=== PATIENT | male | born 1965 | race Caucasian/White ===

== ENCOUNTER 2018-08-14 14:46 | Emergency (ER) | payer BC, SELFPAY ==
[2018-08-14 14:55] VITALS: BP 152/102; PULSE 134; RESP 16; TEMP 36.6; O2SAT 96
--- NOTE | 2018-08-14 15:22 | ED.GENADUL_ITS ---
Discharge Plan Disposition Patient Disposition: AGAINST MEDICAL ADVICE Condition: Fair Discharge Details Chief Complaint: Palpitatns Clinical Impression: Atrial fibrillation Primary Care Provider: Nadya Day ED Provider: Leonor Johnson Home Meds and New Rx's Prescriptions: New diltiazem HCl 120 mg capsule,extended release 24hr 120 mg PO DAILY Qty: 30 RF: 0 Eliquis 5 mg tablet 5 mg PO BID Qty: 60 RF: 0 Discharge Instructions Instructions: Atrial Fibrillation (ED) Additional Instructions: You have elected to leave the emergency department AGAINST MEDICAL ADVICE. The risks of doing so are and permanent disability as we discussed. Please return immediately to the emergency department if you change your mind, if you develop new or worsening symptoms, or if you become otherwise concerned. It is extremely important that you make an appointment to be seen by your primary care doctor in follow-up for this visit within the next 1 to 2 days, and also that you make an appointment to be seen by a imaging specialist as soon as possible in follow-up. Referrals: Nadya Day [Primary Care Provider] - Prisca Lopez MD [ CONSULTING PHYSICIAN] - Discharge Data Discharge Date/Time-TO BE ENTERED AT DEPARTURE: 08/14/18 18:10 Medical Decision Making Byron Stephens is a 2-year-old man with out reported history of medical problems, taking no medications who presented to the emergency department with sensation of racing heart and mild lightheadedness since waking this morning. On exam patient found to be tachycardic with an irregular rhythm, exam is otherwise benign. Concern for new onset atrial fibrillation. Exam/history is not consistent with acute aortic pathology, sepsis. Doubt PE. Plan for EKG, chest x-ray, screening labs, telemetry, IV diltiazem, admission for new onset A. fib. Patient does state repeatedly that he does not wish to be admitted to the hospital. Patient heart rate improved to 100-110 after diltiazem bolus, plan for diltiazem drip and admission. I again discussed with the patient my concerns and reasoning for admission. Patient states to me that he does not want to be admitted under any circumstance at this time and wants to go home. I discussed the risks of leaving AGAINST MEDICAL ADVICE including or permanent disability, and he continues to refuse admission despite verbalizes seeing understanding the risks. Patient has decision-making capacity. plan to discuss patient with cardiology for outpatient management. I discussed Pt presentation, results with Dr. Lopez of cardiology, who recommends patient be admitted, however if patient refuses admission AGAINST MEDICAL ADVICE, he recommends diltiazem 24-hour extended release 120 mg to be given here in the hospital after stopping diltiazem drip, with subsequent 2-hour observation in the emergency department to watch for hypotension. He also recommends patient be started on Eliquis 5 mg twice daily, and states that his office will contact patient tomorrow to schedule outpatient follow-up with cardiology. I discussed the plan with the patient. He is amenable to starting Eliquis and p.o. diltiazem however he does refuse a 2-hour observation period. I again discussed the risks of leaving AGAINST MEDICAL ADVICE in this scenario, including life- threatening hypotension in addition to prior risks discussed previously, he again verbalizes understanding of the risks and refuses recommended plan 2 hour observation. Lengthy discussion with patient regarding return to emergency department precautions, home care, that it is likely his atrial fibrillation is due to excessive alcohol consumption, and that he should either stop drinking altogether or limit alcohol intake to 1 drink per day, and importance of outpatient follow-up with cardiology and his PCP soon as possible, and also that he may return to the emergency department anytime if he changes his mind. Patient verbalized understanding. Patient was discharged AGAINST MEDICAL ADVICE with clear plan for outpatient follow-up. All questions were answered. Medical Records Medical records reviewed: Yes I reviewed the patient's medical records. Imaging Data Radiologic Study: Attestation: I personally reviewed and interpreted this imaging study as follows: Radiologist's impression: PORTABLE CHEST: Comparison is made with April,. The cardiac and mediastinal contours have a normal appearance. The lungs are well inflated and clear. No infiltrate, effusion or pulmonary edema is seen. There is no evidence of pneumothorax. IMPRESSION: Negative chest x-ray. Lab Data Lab results reviewed: Yes I reviewed the patient's lab results. Laboratory Tests Range/Units 08/14/18 08/14/18 08/14/18 15:25 15:25 15:25 WBC (4.4-10.8) k/cumm 8.21 RBC (4.50-6.00) m/cumm 4.90 Hgb (13.5-17.5) g/dL 15.8 Hct (40.0-50.0) % 46.6 MCV (80-95) fL 95.1 H MCH (27.0-33.0) pg 32.2 MCHC (32.0-36.0) g/dL 33.9 RDW (11.8-14.1) % 13.1 Plt Count (130-400) x1000/uL 260 MPV (8.0-11.0) fL 10.3 Immature Gran % 0.4 Neutrophils % 67.6 Lymphocytes % 19.0 Monocytes % 9.6 Eosinophils % 2.7 Basophils % 0.7 Absolute Neutrophils (1.2-6.7) k/cumm 5.55 Absolute Lymphocytes (1.2-3.4) k/cumm 1.56 Absolute Monocytes (0.11-0.7) k/cumm 0.79 H Absolute Eosinophils (0.0-0.7) k/cumm 0.22 Absolute Basophils (0.0-0.2) k/cumm 0.06 D-Dimer (<500) ng/mlFEU 284 Sodium (136-145) mmol/L 140 Potassium (3.5-5.1) mmol/L 4.0 Chloride (98-107) mmol/L 104 Carbon Dioxide (21.0-32.0) mmol/L 25.1 Anion Gap (3-11) mmol/L 10.9 BUN (7-18) mg/dL 16 Creatinine (0.70-1.30) mg/dL 0.88 Estimated GFR/1.73 m2 (mL/min/1.73m2) >= 60.00 Glucose (70-100) mg/dL 137 H Calcium (8.5-10.1) mg/dL 8.8 Total Bilirubin (0.2-1.0) mg/dL 0.3 AST (15-37) U/L 22 ALT (12-78) U/L 44 Alkaline Phosphatase (46-116) U/L 113 Troponin I (0.00-0.06) ng/mL < 0.02 Total Protein (6.4-8.2) g/dL 7.7 Albumin (3.4-5.0) g/dL 3.8 TSH (0.358-3.74) uIU/mL Range/Units 08/14/18 08/14/18 18:08 19:30 WBC (4.4-10.8) k/cumm RBC (4.50-6.00) m/cumm Hgb (13.5-17.5) g/dL Hct (40.0-50.0) % MCV (80-95) fL MCH (27.0-33.0) pg MCHC (32.0-36.0) g/dL RDW (11.8-14.1) % Plt Count (130-400) x1000/uL MPV (8.0-11.0) fL Immature Gran % Neutrophils % Lymphocytes % Monocytes % Eosinophils % Basophils % Absolute Neutrophils (1.2-6.7) k/cumm Absolute Lymphocytes (1.2-3.4) k/cumm Absolute Monocytes (0.11-0.7) k/cumm Absolute Eosinophils (0.0-0.7) k/cumm Absolute Basophils (0.0-0.2) k/cumm D-Dimer (<500) ng/mlFEU Sodium (136-145) mmol/L Potassium (3.5-5.1) mmol/L Chloride (98-107) mmol/L Carbon Dioxide (21.0-32.0) mmol/L Anion Gap (3-11) mmol/L BUN (7-18) mg/dL Creatinine (0.70-1.30) mg/dL Estimated GFR/1.73 m2 (mL/min/1.73m2) Glucose (70-100) mg/dL Calcium (8.5-10.1) mg/dL Total Bilirubin (0.2-1.0) mg/dL AST (15-37) U/L ALT (12-78) U/L Alkaline Phosphatase (46-116) U/L Troponin I (0.00-0.06) ng/mL Cancelled Total Protein (6.4-8.2) g/dL Albumin (3.4-5.0) g/dL TSH (0.358-3.74) uIU/mL 1.56 ECG Data Attestation: I personally reviewed and interpreted this ECG (s) as follows: Interpretation: EKG shows afib 129, far right axis, I and aVL TW inversion, no prior, non-diagonostic EKG HPI General Mode of arrival: ambulatory . Date/Time Provider Initiated Documentation: 08/14/18 15:01 . Limitations to Documentation: no limitations . Information obtained by: patient, RN notes reviewed and old records reviewed . HPI Narrative: Byron Stephens 52-year-old man without reported history of major medical problems, taking no medications now presenting to the emergency department with palpitations. Patient has an at home pulse oximeter, which he used to monitor his heart rate as between 110 and 130 while at rest. Patient reports that he woke up this morning at 6:30 AM with a sensation that his heart was racing. He went to work today at [employer], and reports that he continued to have a sensation in his heart was racing and felt somewhat lightheaded while standing. Patient reports that he was encouraged to go to the emergency department by his coworkers. Patient reports that he has been feeling somewhat more tired than usual over the past few days, but otherwise has been in his usual state of health. He does not recall having a sensation of his heart racing or palpitations in the past. Patient reports that for the past 4 to 5 weeks he has been drinking 4-5 beers a day, which is increased from a baseline of approximately 3 beers a day. Patient reports that his mother approximately 1 year ago, and he has been under increased stress with Mother's Day yesterday. Patient denies pain, shortness of breath, fever, cough, vomiting, diarrhea. No recent illness. No recent travel. Has been eating and drinking as usual. He is a current everyday smoker, no drug use. Related Data Home Medications Medication Instructions Recorded Confirmed Eliquis 5 mg PO BID #60 tab 08/14/18 08/15/18 diltiazem HCl 120 mg PO DAILY #30 cap 08/14/18 08/15/18 Previous Rx's Medication Instructions Recorded Eliquis 5 mg PO BID #60 tab 08/14/18 diltiazem HCl 120 mg PO DAILY #30 cap 08/14/18 Allergies Allergy/AdvReac Type Severity Reaction Status Date / Time No Known Allergies Allergy Unverified 08/15/18 11:59 General Stated Complaint: Palpitatns RAVI: 2 Review of Systems Review of Systems Constitutional: denies fevers Eyes: denies eye pain ENT: denies facial pain, dental pain, sore throat Cardiovascular: denies chest pain, edema, reports racing heart Respiratory: denies SOB, cough GI: denies abdominal pain, vomiting, diarrhea : denies flank pain MSK: denies back pain, neck pain, arthralgias, myalgias Skin: denies rash Neuro: denies headaches, numbness, weakness [facility] Social History Smoking/Tobacco Use Status: Current every day Tobacco Type: cigarettes Smoking packs per day: 1 Alcohol Intake: current Alcohol Intake frequency: 0-2 drinks per day Drug use: Never Do you feel safe at home: Yes Do you feel safe in your relationship?: Yes Exam Narrative Exam Narrative: Constitutional: well and [id number], pleasant, conversing normally HENT: head atraumatic/normocephalic/normal inspection, mucous membranes moist Eyes: conjunctiva normal, sclera normal, pupils 3mm b/l Neck: no stridor, normal ROM, trachea midline Chest: normal inspection Resp: normal work of breathing, LCTAB Cardio: Tachycardic rate between 120 and 135, irregular rhythm, no murmur appreciated GI: abdomen soft, non-tender, non-distended Back: normal inspection, no rash Skin: warm, dry, normal color, no rash Neuro: alert, not altered, grossly non-focal, normal tone Ext: no edema, no posterior calf tenderness, patient notes varicose veins left lower leg that are mildly tender which he reports as chronic and unchanged over the past 5 years Psych: normal mood, normal affect, normal behavior Course Vital Signs Temperature 36.6 C 08/14/18 14:55 Pulse 134 H 08/14/18 14:55 Respiratory Rate 16 08/14/18 14:55 Blood Pressure 152/102 H 08/14/18 14:55 Pulse Oximetry 96 08/14/18 14:55 Temperature 36.6 C 08/14/18 14:55 Temperature Source Skin 08/14/18 14:55 Pulse 134 H 08/14/18 14:55 Respiratory Rate 16 08/14/18 14:55 Blood Pressure 152/102 H 08/14/18 14:55 Blood Pressure Position Sitting 08/14/18 14:55 Pulse Oximetry 96 08/14/18 14:55 Oxygen Delivery Method Room Air 08/14/18 14:55 Oxygen Flow Rate 0 08/14/18 14:55 Pain Level 0 08/14/18 14:55
[2018-08-14 15:31] LABS: Abs Immature Grans 0.03 k/cumm (0.0-0.09); Absolute Basophil Count 0.06 k/cumm (0.0-0.2); Absolute Eosinophil Count 0.22 k/cumm (0.0-0.7); Absolute Lymphocyte Count 1.56 k/cumm (1.2-3.4); Absolute Monocyte Count 0.79 k/cumm (0.11-0.7); Absolute Neutrophil Count 5.55 k/cumm (1.2-6.7); Basophils % 0.7; Eosinophils % 2.7; HCT 46.6 % (40.0-50.0); HGB 15.8 g/dL (13.5-17.5); Immature Grans % 0.4; Mean Corp. HGB Concentration 33.9 g/dL (32.0-36.0); Mean Corpuscular Hemoglobin 32.2 pg (27.0-33.0); Mean Corpuscular Volume 95.1 fL (80-95); Mean Platelet Volume 10.3 fL (8.0-11.0); Monocytes % 9.6; Neutrophils % 67.6; Platelet Count 260 x1000/uL (130-400); RBC Distribution Width 13.1 % (11.8-14.1); White Blood Cell Count 8.21 k/cumm (4.4-10.8)
[2018-08-14 15:39] VITALS: BP 140/97; PULSE 130
[2018-08-14] MEDS: dilTIAZem 25 MG/5 ML VIAL 20 MG IVP (15:39)
[2018-08-14] MEDS: Normal Saline 250 ML IV (15:40)
[2018-08-14 15:46] LABS: ALT 44 U/L (12-78); AST 22 U/L (15-37); Albumin 3.8 g/dL (3.4-5.0); Alkaline Phosphatase 113 U/L (46-116); Anion Gap 10.9 mmol/L (3-11); BUN 16 mg/dL (7-18); Bilirubin, Total 0.3 mg/dL (0.2-1.0); CO2 25.1 mmol/L (21.0-32.0); CREATININE 0.88 mg/dL (0.70-1.30); Calcium 8.8 mg/dL (8.5-10.1); Chloride 104 mmol/L (98-107); Glucose 137 mg/dL (70-100); Sodium 140 mmol/L (136-145); Total Protein 7.7 g/dL (6.4-8.2)
[2018-08-14 15:51] LABS: Troponin I < 0.02 ng/mL (0.00-0.06)
[2018-08-14 16:04] LABS: D-Dimer 284 ng/mlFEU (<500)
[2018-08-14] MEDS: dilTIAZem 125 MG in Normal Saline 100 ML IV (16:45)
[2018-08-14 18:34] LABS: TSH (W/Ref FT4) 1.56 uIU/mL (0.358-3.74)
--- NOTE | 2018-08-16 08:24 | PDOC.ERCMPRO ---
Care Management Progress Note 08/15-Josie left AMA refusing admission. Presented to ED for palpitations. Josie called this CM requesting a cardiology f/u. States he called cardiology and was told he needed to have a referral. This CM faxed referral to cardiology based on Dr. Ryanne Johnson's note. Patient also requested a work note. Josie stated he could not get in to see his PCP until 08/25 and could not stay out of work that long. This CM called [facility] and spoke with GOLDEN Carter. Emma stated that the th was next available and she could not get him in any sooner. Called josie back and explained above. Recommended that he return to the emergency department for evaluation if he needed to. Josie is in agreement with all the above.
--- NOTE | 2018-08-16 08:27 | CMPROGNOTE_ITS ---
Care Management Progress Note 08/15-Josie left AMA refusing admission. Presented to ED for palpitations. Josie called this CM requesting a cardiology f/u. States he called cardiology and was told he needed to have a referral. This CM faxed referral to cardiology based on Dr. Ryanne Johnson's note. Patient also requested a work note. Josie stated he could not get in to see his PCP until 08/25 and could not stay out of work that long. This CM called [facility] and spoke with GOLDEN Carter. Emma stated that the th was next available and she could not get him in any sooner. Called josie back and explained above. Recommended that he return to the emergency department for evaluation if he needed to. Josie is in agreement with all the above.
== END 2018-08-14 18:10 | disposition left against medical advice (07) ==
PROVIDERS: Emergency Provider Student in an Organized Health Care Education/Training Program; PCP Nurse Practitioner Adult Health
DX: I48.91 Unspecified atrial fibrillation (principal); R42 Dizziness and giddiness; R00.0 Tachycardia, unspecified; Z53.29 Procedure and treatment not carried out because of patient's decision for other reasons
CPT/HCPCS: 36415; 80053; 93005; 96361; 96365; 96375; 99285; 71045; 84443; 84484; 85025; 85379; 93010

== ENCOUNTER 2018-08-15 11:48 | Emergency (ER) | payer BC, SELFPAY ==
[2018-08-15 11:55] VITALS: BP 149/93; PULSE 77; RESP 16; TEMP 36.4; O2SAT 99
--- NOTE | 2018-08-15 12:35 | W.ED.GENAD ---
Discharge Plan Disposition Patient Disposition: HOME Condition: Good Discharge Details Chief Complaint: GenMedical Clinical Impression: Need for reassessment, Atrial fibrillation Primary Care Provider: Nadya Day ED Provider: Real Hensley Home Meds and New Rx's Prescriptions: Continued diltiazem HCl 120 mg capsule,extended release 24hr 120 mg PO DAILY Qty: 30 RF: 0 Eliquis 5 mg tablet 5 mg PO BID Qty: 60 RF: 0 Discharge Instructions Instructions: Atrial Fibrillation (ED) Additional Instructions: Please return immediately to the emergency department for any new or significant worsening of symptoms, headache or neurological change, chest pain, worsening irregular heartbeats or rapid heartbeats, or any shortness of breath difficulty breathing. Otherwise you should continue to follow-up with your primary care provider and marine operations coordinator as previously arranged Stand Alone Forms: Work Release Referrals: Gary Ochoa [ [facility] STAFF PHYSICIAN] - (Please continue to follow-up with Dr. crowley's office as previously scheduled) Discharge Data Discharge Date/Time-TO BE ENTERED AT DEPARTURE: 08/15/18 12:51 Medical Decision Making Patient presenting to the emergency department for need of reassessment and work release. Patient presented yesterday to the emergency department with new diagnosis of A. fib and was placed on diltiazem and Eliquis. He did leave the emergency department yesterday evening AGAINST MEDICAL ADVICE because he did not want to be admitted to the hospital. Patient took medication as prescribed and yesterday evening noted a return of heart rate to the 60s with no irregularity. Patient denies any symptoms at this time states no chest pain, no shortness of breath or difficulty breathing, no headache, no focal neurological symptoms. Patient reports that he is still little nervous going back to work so soon after his heart was beating so fast yesterday but states he has had no symptoms after he felt his heart rate changed yesterday evening. Patient attempted to get a appointment with his primary care provider and/or marine operations coordinator so that he could return back to work make sure that there is nothing else he may need to do or no other new medications. Physical exam is unremarkable and per RN patient was placed upon bedside monitor for a brief moment and noted sinus rhythm. Auscultation of the heart shows regular rate and rhythm, and otherwise unremarkable cardiac and respiratory examination. Patient is continued to refuse admission or further work-up and states that he is mainly here for work note. Given that patient seems to have converted to a sinus rhythm and is rate controlled and asymptomatic I feel that it is reasonable for patient to return to work with close return precautions thoroughly discussed with him. He does state that he is going to continue to follow-up with primary care as soon as this is available along with attempting to get a cardiology appointment. I feel that all this is reasonable and patient is competent to refuse any further work-up and to make his own medical decisions. After discussion of diagnosis and plan of care patient has no further needs, questions, or concerns and states clear understanding to return to the emergency department for any worsening symptoms. HPI General Mode of arrival: ambulatory. Date/Time Provider Initiated Documentation: 08/15/18 12:01. Limitations to Documentation: no limitations. Information obtained by: RN notes reviewed and old records reviewed. History of Present Illness 52 year old M presents to the emergency department with the chief complaint of Reassessment of A-fib, Patient started experiencing this day(s) (1) and it has been now resolved. Medication improves symptom(s), Patient notes no other symptoms.. Related Data Home Medications Medication Instructions Recorded Confirmed Eliquis 5 mg PO BID #60 tab 08/14/18 08/15/18 diltiazem HCl 120 mg PO DAILY #30 cap 08/14/18 08/15/18 Previous Rx's Medication Instructions Recorded Eliquis 5 mg PO BID #60 tab 08/14/18 diltiazem HCl 120 mg PO DAILY #30 cap 08/14/18 Allergies Allergy/AdvReac Type Severity Reaction Status Date / Time No Known Allergies Allergy Unverified 08/15/18 11:59 General Stated Complaint: GenMedical RAVI: 4 Review of Systems Constitutional Denies chills, Denies fever(s), Denies headache(s) and Denies malaise ENT Denies headache(s) Cardiovascular Reports as per HPI, Denies chest pain, Denies chest pain with activity, Denies syncope, Denies rapid heart rate, Denies irregular heart rhythm, Denies lightheadedness and Denies dyspnea Respiratory Denies cough, Denies hemoptysis and Denies dyspnea Gastrointestinal Denies nausea Neurologic Denies syncope, Denies headache(s) and Reports other (Denies focal neurological deficits) Psychiatric Denies anxiety [facility] Social History Smoking/Tobacco Use Status: Current every day Tobacco Type: cigarettes Smoking packs per day: 1 Alcohol Intake: current Alcohol Intake frequency: 0-2 drinks per day Drug use: Never Do you feel safe at home: Yes Do you feel safe in your relationship?: Yes Exam Const General: cooperative, healthy appearing, comfortable, no acute distress, not diaphoretic and not ill appearing Nutritional Appearance: average body habitus Orientation: alert, awake and oriented x3 Limitations: mental status not altered Neck Neck: normal visual inspection, full ROM, trachea midline, supple and no anterior neck swelling Thyroid: thyroid normal Carotids: normal carotid upstroke and no bruits Chest Chest: normal inspection of the chest Resp Effort & Inspection: normal respiratory effort and able to speak in complete sentences Auscultation: clear to auscultation bilaterally Cardio Jugular venous pressure: no JVD Palpation: normal PMI Rate: regular rate Rhythm: regular rhythm Heart Sounds: S1 normal, S2 normal, no click, no gallops, no murmurs and no rubs Bruits: no abdominal aortic bruits and no carotid bruits Pulses: radial pulses present bilaterally 2+ Neuro General: alert, awake, oriented x3, tone normal and moves all extremities Course Vital Signs Temperature 36.4 C 08/15/18 11:55 Pulse 77 08/15/18 11:55 Respiratory Rate 16 08/15/18 11:55 Blood Pressure 149/93 H 08/15/18 11:55 Pulse Oximetry 99 08/15/18 11:55 Temperature 36.4 C 08/15/18 11:55 Temperature Source Temporal Artery Scan 08/15/18 11:55 Pulse 77 08/15/18 11:55 Respiratory Rate 16 08/15/18 11:55 Respiratory Effort Non-Labored 08/15/18 11:59 Blood Pressure 149/93 H 08/15/18 11:55 Blood Pressure Position Sitting 08/15/18 11:55 Pulse Oximetry 99 08/15/18 11:55 Oxygen Delivery Method Room Air 08/15/18 11:55 Oxygen Flow Rate 0 08/15/18 11:55 Pain Level 0 08/15/18 11:55
--- NOTE | 2018-08-15 12:39 | ED.GENADUL_ITS ---
Discharge Plan Disposition Patient Disposition: HOME Condition: Good Discharge Details Chief Complaint: GenMedical Clinical Impression: Need for reassessment, Atrial fibrillation Primary Care Provider: Nadya Day ED Provider: Real Hensley Home Meds and New Rx's Prescriptions: Continued diltiazem HCl 120 mg capsule,extended release 24hr 120 mg PO DAILY Qty: 30 RF: 0 Eliquis 5 mg tablet 5 mg PO BID Qty: 60 RF: 0 Discharge Instructions Instructions: Atrial Fibrillation (ED) Additional Instructions: Please return immediately to the emergency department for any new or significant worsening of symptoms, headache or neurological change, chest pain, worsening irregular heartbeats or rapid heartbeats, or any shortness of breath difficulty breathing. Otherwise you should continue to follow-up with your primary care provider and process project engineer as previously arranged Stand Alone Forms: Work Release Referrals: Gary Ochoa [ [facility] STAFF PHYSICIAN] - (Please continue to follow-up with Dr. crowley's office as previously scheduled) Discharge Data Discharge Date/Time-TO BE ENTERED AT DEPARTURE: 08/15/18 12:51 Medical Decision Making Patient presenting to the emergency department for need of reassessment and work release. Patient presented yesterday to the emergency department with new diagnosis of A. fib and was placed on diltiazem and Eliquis. He did leave the emergency department yesterday evening AGAINST MEDICAL ADVICE because he did not want to be admitted to the hospital. Patient took medication as prescribed and yesterday evening noted a return of heart rate to the 60s with no irregularity. Patient denies any symptoms at this time states no chest pain, no shortness of breath or difficulty breathing, no headache, no focal neurological symptoms. Patient reports that he is still little nervous going back to work so soon after his heart was beating so fast yesterday but states he has had no symptoms after he felt his heart rate changed yesterday evening. Patient attempted to get a appointment with his primary care provider and/or process project engineer so that he could return back to work make sure that there is nothing else he may need to do or no other new medications. Physical exam is unremarkable and per RN patient was placed upon bedside monitor for a brief moment and noted sinus rhythm. Auscultation of the heart shows regular rate and rhythm, and otherwise unremarkable cardiac and respiratory examination. Patient is continued to refuse admission or further work-up and states that he is mainly here for work note. Given that patient seems to have converted to a sinus rhythm and is rate controlled and asymptomatic I feel that it is reasonable for patient to return to work with close return precautions thoroughly discussed with him. He does state that he is going to continue to follow-up with primary care as soon as this is available along with attempting to get a cardiology appointment. I feel that all this is reasonable and patient is competent to refuse any further work- up and to make his own medical decisions. After discussion of diagnosis and plan of care patient has no further needs, questions, or concerns and states clear understanding to return to the emergency department for any worsening symptoms. HPI General Mode of arrival: ambulatory . Date/Time Provider Initiated Documentation: 08/15/18 12:01 . Limitations to Documentation: no limitations . Information obtained by: RN notes reviewed and old records reviewed . History of Present Illness 52 year old M presents to the emergency department with the chief complaint of Reassessment of A-fib, Patient started experiencing this day(s) (1) and it has been now resolved. Medication improves symptom(s), Patient notes no other symptoms.. Related Data Home Medications Medication Instructions Recorded Confirmed Eliquis 5 mg PO BID #60 tab 08/14/18 08/15/18 diltiazem HCl 120 mg PO DAILY #30 cap 08/14/18 08/15/18 Previous Rx's Medication Instructions Recorded Eliquis 5 mg PO BID #60 tab 08/14/18 diltiazem HCl 120 mg PO DAILY #30 cap 08/14/18 Allergies Allergy/AdvReac Type Severity Reaction Status Date / Time No Known Allergies Allergy Unverified 08/15/18 11:59 General Stated Complaint: GenMedical RAVI: 4 Review of Systems Constitutional Denies chills, Denies fever(s), Denies headache(s) and Denies malaise ENT Denies headache(s) Cardiovascular Reports as per HPI, Denies chest pain, Denies chest pain with activity, Denies syncope, Denies rapid heart rate, Denies irregular heart rhythm, Denies lightheadedness and Denies dyspnea Respiratory Denies cough, Denies hemoptysis and Denies dyspnea Gastrointestinal Denies nausea Neurologic Denies syncope, Denies headache(s) and Reports other (Denies focal neurological deficits) Psychiatric Denies anxiety [facility] Social History Smoking/Tobacco Use Status: Current every day Tobacco Type: cigarettes Smoking packs per day: 1 Alcohol Intake: current Alcohol Intake frequency: 0-2 drinks per day Drug use: Never Do you feel safe at home: Yes Do you feel safe in your relationship?: Yes Exam Const General: cooperative, healthy appearing, comfortable, no acute distress, not diaphoretic and not ill appearing Nutritional Appearance: average body habitus Orientation: alert, awake and oriented x3 Limitations: mental status not altered Neck Neck: normal visual inspection, full ROM, trachea midline, supple and no anterior neck swelling Thyroid: thyroid normal Carotids: normal carotid upstroke and no bruits Chest Chest: normal inspection of the chest Resp Effort & Inspection: normal respiratory effort and able to speak in complete sentences Auscultation: clear to auscultation bilaterally Cardio Jugular venous pressure: no JVD Palpation: normal PMI Rate: regular rate Rhythm: regular rhythm Heart Sounds: S1 normal, S2 normal, no click, no gallops, no murmurs and no rubs Bruits: no abdominal aortic bruits and no carotid bruits Pulses: radial pulses present bilaterally 2+ Neuro General: alert, awake, oriented x3, tone normal and moves all extremities Course Vital Signs Temperature 36.4 C 08/15/18 11:55 Pulse 77 08/15/18 11:55 Respiratory Rate 16 08/15/18 11:55 Blood Pressure 149/93 H 08/15/18 11:55 Pulse Oximetry 99 08/15/18 11:55 Temperature 36.4 C 08/15/18 11:55 Temperature Source Temporal Artery Scan 08/15/18 11:55 Pulse 77 08/15/18 11:55 Respiratory Rate 16 08/15/18 11:55 Respiratory Effort Non-Labored 08/15/18 11:59 Blood Pressure 149/93 H 08/15/18 11:55 Blood Pressure Position Sitting 08/15/18 11:55 Pulse Oximetry 99 08/15/18 11:55 Oxygen Delivery Method Room Air 08/15/18 11:55 Oxygen Flow Rate 0 08/15/18 11:55 Pain Level 0 08/15/18 11:55
[2018-08-15 12:52] VITALS: BP 149/93; PULSE 77; RESP 16; TEMP 36.4; O2SAT 99
== END 2018-08-15 12:51 | disposition home or self-care (01) ==
PROVIDERS: Emergency Provider Nurse Practitioner Family; PCP Nurse Practitioner Adult Health
DX: I48.91 Unspecified atrial fibrillation (principal)
CPT/HCPCS: 99281

== ENCOUNTER 2019-02-09 16:44 | Outpatient (REF) | payer BC, SELFPAY ==
[2019-02-09 19:16] LABS: ALT 57 U/L (16-63); AST 20 U/L (15-37); Alkaline Phosphatase 123 U/L (46-116); Anion Gap 10.4 mmol/L (3-11); BUN 17 mg/dL (7-18); Bilirubin, Total 0.4 mg/dL (0.2-1.0); CO2 27.6 mmol/L (21.0-32.0); CREATININE 0.91 mg/dL (0.70-1.30); Calculated LDL 144 mg/dL; Chloride 102 mmol/L (98-107); Cholesterol 213 mg/dL (50-200); Glucose 111 mg/dL (70-100); HDL Cholesterol 59 mg/dL (40-60); Potassium 4.1 mmol/L (3.5-5.1); Sodium 140 mmol/L (136-145); Total Protein 7.6 g/dL (6.4-8.2); Triglyceride 51 mg/dL (30-150)
[2019-02-09 19:35] LABS: HCT 45.2 % (40.0-50.0); HGB 14.9 g/dL (13.5-17.5); Mean Corpuscular Hemoglobin 31.8 pg (27.0-33.0); Mean Corpuscular Volume 96.6 fL (80-95); Mean Platelet Volume 11.8 fL (8.0-11.0); Platelet Count 272 x1000/uL (130-400); RBC 4.68 m/cumm (4.50-6.00); RBC Distribution Width 13.1 % (11.8-14.1); White Blood Cell Count 7.98 k/cumm (4.4-10.8)
[2019-02-13 08:18] LABS: Hepatitis C Ab w Rflx HCV PCR Negative (Negative)
== END 2019-02-09 17:04 ==
LOC: NCHCN 16:44
PROVIDERS: PCP Nurse Practitioner Adult Health; Visit Provider Family Medicine
DX: Z00.00 Encounter for general adult medical examination without abnormal findings (principal); Z13.220 Encounter for screening for lipoid disorders; F10.10 Alcohol abuse, uncomplicated; R73.09 Other abnormal glucose; Z11.59 Encounter for screening for other viral diseases
CPT/HCPCS: 80053; 80061; 85027; 86803

== ENCOUNTER 2021-10-02 18:36 | Outpatient (REF) | payer BC, SELFPAY ==
[2021-10-02 16:24] LABS: HCT 47.6 % (40.0-50.0); HGB 15.8 g/dL (13.5-17.5); MCH 31.7 pg (27.0-33.0); MCHC 33.2 % (32.0-36.0); MCV 96 fL (80-95); MPV 12.6 fL (8.0-11.0); Platelet Count 243 10^3/uL (130-400); RBC 4.98 10^6/uL (4.36-5.78); RDW 12.9 % (11.8-14.1); RDW-SD 45.8 fL; WBC 6.71 10^3/uL (4.4-10.8)
[2021-10-02 16:46] LABS: ALT 61 U/L (16-63); AST 26 U/L (15-37); Albumin 3.8 g/dL (3.4-5.0); Alkaline Phosphatase 111 U/L (46-116); BUN 17 mg/dL (7-18); Bilirubin, Total 0.5 mg/dL (0.2-1.0); CREATININE 0.8 mg/dL (0.70-1.30); Calcium 8.5 mg/dL (8.5-10.1); Calculated LDL 138 mg/dL (<100); Chloride 102 mmol/L (98-107); Cholesterol 213 mg/dL (<200); Glucose 117 mg/dL (74-106); HDL Cholesterol 64 mg/dL (40-60); Sodium 136 mmol/L (136-145); Total Protein 7.6 g/dL (6.4-8.2); Triglyceride 59 mg/dL (<150)
== END 2021-10-02 18:37 | disposition home or self-care (01) ==
LOC: NCHCN 18:36
PROVIDERS: PCP Nurse Practitioner Adult Health; Visit Provider Family Medicine
DX: Z00.00 Encounter for general adult medical examination without abnormal findings (principal); R73.03 Prediabetes; F10.10 Alcohol abuse, uncomplicated; I10 Essential (primary) hypertension; E78.5 Hyperlipidemia, unspecified
CPT/HCPCS: 80053; 80061; 85027; 83036

== ENCOUNTER 2022-11-23 21:35 | Outpatient (REF) | payer BC, SELFPAY ==
[2022-11-23 18:49] LABS: HCT 46.9 % (40.0-50.0); HGB 15.8 g/dL (13.5-17.5); MCHC 33.7 % (32.0-36.0); MCV 95 fL (80-95); MPV 11.5 fL (8.0-11.0); Platelet Count 236 10^3/uL (130-400); RBC 4.94 10^6/uL (4.36-5.78); RDW 12.4 % (11.8-14.1); RDW-SD 43.6 fL
[2022-11-23 19:43] LABS: ALT 43 U/L (16-63); AST 20 U/L (15-37); Alkaline Phosphatase 136 U/L (46-116); Anion Gap 12.8 mmol/L (3-11); BUN 18 mg/dL (7-18); Bilirubin, Total 0.4 mg/dL (0.2-1.0); CO2 23.2 mmol/L (21.0-32.0); CREATININE 0.8 mg/dL (0.70-1.30); Calcium 8.9 mg/dL (8.5-10.1); Chloride 99 mmol/L (98-107); Estimated GFR 102.58 (mL/min/1.73m2); Glucose 104 mg/dL (74-106); Potassium 3.8 mmol/L (3.5-5.1); Sodium 135 mmol/L (136-145); Total Protein 7.8 g/dL (6.4-8.2)
[2022-11-24 19:32] LABS: PSA, Screening 9.5 ng/mL (<=3.5)
== END 2022-11-23 21:36 | disposition home or self-care (01) ==
LOC: NCHCN 21:35
PROVIDERS: PCP Nurse Practitioner Adult Health; Visit Provider Family Medicine
DX: Z00.00 Encounter for general adult medical examination without abnormal findings (principal); F10.10 Alcohol abuse, uncomplicated; Z12.5 Encounter for screening for malignant neoplasm of prostate
CPT/HCPCS: 80053; 84153; 85027

== ENCOUNTER 2023-02-21 22:21 | Outpatient (REF) | payer BC, SELFPAY ==
[2023-02-21 20:48] LABS: HCT 48.1 % (40.0-50.0); HGB 16.1 g/dL (13.5-17.5); MCH 31.9 pg (27.0-33.0); MCHC 33.5 % (32.0-36.0); MCV 95 fL (80-95); MPV 12.6 fL (8.0-11.0); Platelet Count 222 10^3/uL (130-400); RBC 5.05 10^6/uL (4.36-5.78); RDW 12.5 % (11.8-14.1); RDW-SD 44.5 fL; WBC 7.84 10^3/uL (4.4-10.8)
== END 2023-02-21 22:22 | disposition home or self-care (01) ==
LOC: NCHCN 22:21
PROVIDERS: PCP Family Medicine; Visit Provider Family Medicine
DX: K92.1 Melena (principal); R97.20 Elevated prostate specific antigen [PSA]
CPT/HCPCS: 85027; 84154

== ENCOUNTER 2023-07-12 14:12 | Outpatient (CLI) | payer BC, SELFPAY ==
[2023-07-12 22:59] LABS: PSA, Diagnostic 10.1 ng/mL (<=3.5)
== END 2023-07-12 14:13 | disposition home or self-care (01) ==
LOC: LBO 14:12
PROVIDERS: Nurse Practitioner Gerontology; PCP Student in an Organized Health Care Education/Training Program; Visit Provider Urology
DX: R97.20 Elevated prostate specific antigen [PSA] (principal); N40.0 Benign prostatic hyperplasia without lower urinary tract symptoms
CPT/HCPCS: 36415; 84153

== ENCOUNTER 2023-10-21 15:36 | Outpatient (REF) | payer BC, SELFPAY ==
--- NOTE | 2023-10-21 15:20 | PROST_PTH ---
PATIENT: Byron Stephens JR LOC: [facility] U#:[id number] AGE/SX: 57/M ROOM: RE10/21/[address]: Alexander Garcia MD : 1965 BED: DIS: 10/21/2023 SPEC #: [id number] RECD: 10/21/23 17:15 STATUS: CLAUDIA REQ #: [id number] EILEL: 10/21/23 15:[address]: Alexander Garcia DEPT: Surgical Specimen RECD BY: Daria Ba ENTERED: 10/21/23 17:17 SP TYPE: PROST OTHR DR: Yvan Kong Tissues: 1 - PROSTATE NEEDLE BIOPSY 2 - PROSTATE NEEDLE BIOPSY 3 - PROSTATE NEEDLE BIOPSY 4 - PROSTATE NEEDLE BIOPSY 5 - PROSTATE NEEDLE BIOPSY 6 - PROSTATE NEEDLE BIOPSY 7 - PROSTATE NEEDLE BIOPSY 8 - PROSTATE NEEDLE BIOPSY 9 - PROSTATE NEEDLE BIOPSY 10 - PROSTATE NEEDLE BIOPSY 11 - PROSTATE NEEDLE BIOPSY 12 - PROSTATE NEEDLE BIOPSY Procedures: GROSS AND MICRO LEVEL 4 IMMUNOPEROXIDASE STAIN Comments: [id number]
== END 2023-10-21 15:37 | disposition home or self-care (01) ==
LOC: LBN 15:36
PROVIDERS: PCP Student in an Organized Health Care Education/Training Program; Visit Provider Urology
DX: R97.20 Elevated prostate specific antigen [PSA] (principal); C61 Malignant neoplasm of prostate
CPT/HCPCS: 88305; 88361

== ENCOUNTER 2023-10-27 12:04 | Emergency (ER) | payer BC, SELFPAY ==
[2023-10-27 12:09] VITALS: BP 175/101; PULSE 84; RESP 15; TEMP 37.2; O2SAT 96
--- NOTE | 2023-10-27 12:35 | ED.GENADUL_ITS ---
Discharge Plan Disposition Patient Disposition: Home Condition: Stable Discharge Details Clinical Impression: Depression Primary Care Provider: Yvan Kong ED Provider: Kofi Hills Home Meds and New Rx's Prescriptions: Continued lorazepam 0.5 mg tablet 0.5 mg PO DAILY PRN (Reason: pre-medication for MRI) Qty: 2 0RF Rx Instructions: Take one tab 30 mins prior to MRI. May repeat right before MRI if needed multivitamin Tablet 1 tab PO DAILY polyethylene glycol 3350 17 gram/dose powder 238 g PO ONCE Qty: 238 0RF Rx Instructions: take per colonoscopy instructions bisacodyl [Dulcolax (bisacodyl)] 5 mg tablet,delayed release (DR/EC) 5 mg PO ONCE Qty: 4 0RF Rx Instructions: take per colonoscopy instructions tamsulosin 0.4 mg capsule 0.4 mg PO DAILY diltiazem HCl 120 mg capsule,extended release 24hr 120 mg PO DAILY Qty: 30 0RF Discharge Instructions Additional Instructions: Follow-up with your primary care provider in [facility] services You feel more ill or have thoughts of self-harm return to the emergency department for reevaluation Try to limit alcohol intake to at most 2 drinks a day is recommended. Stand Alone Forms: Work Release HPI General Mode of arrival: ambulatory . Date/Time Provider Initiated Documentation: 10/27/23 12:07 . Limitations to Documentation: no limitations . Information obtained by: patient . History of Present Illness 57 year old M presents to the emergency department with the chief complaint of depressed, fatigued, described as moderate, Patient started experiencing this month(s) (3) and it has been constant. No relieving factors improve symptom(s), No exacerbating factors reported . Patient notes denies chest pain and shortness of breath. Patient did receive the following treatments prior to arrival, none Related Data Home Medications ?Medication ?Instructions ?Recorded ?Confirmed diltiazem HCl 120 mg 120 mg PO DAILY #30 caps 08/14/18 10/21/23 capsule,extended release 24 hr tamsulosin 0.4 mg capsule 0.4 mg PO DAILY 04/21/23 10/21/23 bisacodyl 5 mg tablet,delayed 5 mg PO ONCE colonscopy bowel prep 06/15/23 10/21/23 release (Dulcolax (bisacodyl)) #4 tabs multivitamin 1 tab PO DAILY 06/15/23 10/21/23 polyethylene glycol 3350 17 238 g PO ONCE colonoscopy prep 06/15/23 10/21/23 gram/dose oral powder #238 grams lorazepam 0.5 mg tablet 0.5 mg PO DAILY PRN pre-medication 07/12/23 10/21/23 for MRI #2 tabs Previous Rx's ?Medication ?Instructions ?Recorded diltiazem HCl 120 mg 120 mg PO DAILY #30 caps 08/14/18 capsule,extended release 24 hr bisacodyl 5 mg tablet,delayed 5 mg PO ONCE colonscopy bowel prep 06/15/23 release (Dulcolax (bisacodyl)) #4 tabs polyethylene glycol 3350 17 238 g PO ONCE colonoscopy prep 06/15/23 gram/dose oral powder #238 grams lorazepam 0.5 mg tablet 0.5 mg PO DAILY PRN pre-medication 07/12/23 for MRI #2 tabs Allergies Allergy/AdvReac Type Severity Reaction Status Date / Time amoxicillin Allergy Severe Anaphylaxis Verified 07/12/23 10:57 General Stated Complaint: PsychEval RAVI: 2 Review of Systems All systems reviewed & are unremarkable except as noted in HPI and below Constitutional Constitutional: Denies chills, Reports fatigue and Denies fever(s) Cardiovascular Cardiovascular: Denies chest pain and Denies dyspnea Respiratory Respiratory: Denies cough and Denies dyspnea Gastrointestinal Gastrointestinal: Denies abdominal pain, Denies nausea and Denies vomiting Musculoskeletal Musculoskeletal: Denies joint swelling Psychiatric Psychiatric: Reports depression Endocrine Endocrine: Reports fatigue Exam Const General: no acute distress Orientation: alert HENVA Head: normal to inspection Ears: external ears normal General nose exam: external nose normal Mouth: moist mucous membranes Eyes General: appearance normal, both eyes and all related structures Neck Neck: normal visual inspection Resp Effort & Inspection: normal respiratory effort and able to speak in complete sentences Cardio Rate: regular rate Skin General skin exam: no rashes or lesions noted Neuro General: patient alert and patient oriented x3 Extrem General: normal to inspection Psych Appearance: well kempt and other (flat affect) Course Vital Signs Vital signs: Vital Signs Temperature 37.2 C 10/27/23 12:09 Pulse 84 10/27/23 12:09 Respiratory Rate 15 10/27/23 12:09 Blood Pressure 175/101 H 10/27/23 12:09 Pulse Oximetry 96 10/27/23 12:09 Temperature 37.2 C 10/27/23 12:09 Temperature Source Tympanic 10/27/23 12:09 Pulse 84 10/27/23 12:09 Respiratory Rate 15 10/27/23 12:09 Blood Pressure 175/101 H 10/27/23 12:09 Blood Pressure Position Sitting 10/27/23 12:09 Pulse Oximetry 96 10/27/23 12:09 Oxygen Delivery Method Room Air 10/27/23 12:09 Oxygen Flow Rate 0 10/27/23 12:09 Pain Level 0 10/27/23 12:09 Medical Decision Making 57-year-old male with a history of A-fib, hypertension, daily drinker, comes in with several months of general fatigue and feeling depressed. Denies any thoughts of self-harm or thoughts of wanting to harm other people. He denies any fevers, chest pain, abdominal pain, headaches. He denies any other drug use. He is currently calm and cooperative, does have a flat affect but answers questions appropriately. He is in normal gait, no focal deficits. Clear speech and clinically sober currently. Suspect depression but will check CBC and CMP and thyroid panel to evaluate for underlying medical process if none are found we will have mental health evaluate. Labs without significant concerning findings, he spoke with mental health and will be cleared for discharge and I will follow-up with him as an outpatient. Patient is comfortable with this plan as of my as he has no SI. He was also follow-up with his primary care provider. Differential Diagnosis Differential Diagnosis: Depression, thyroid issue Medical Records Medical records reviewed: Yes I reviewed the patient's medical records. Lab Data Lab results reviewed: Yes I reviewed the patient's lab results. Quality:SDOH Health Related Social Needs: No Data to Display PFSH All Active Problems (Updated 10/27/23 @ 15:57 by Kofi Hills MD) Depression (Chronic) Serous retinal detachment of left eye (Acute) Elevated PSA (Acute) Prediabetes (Acute) Allergic contact dermatitis (Acute) BPH (benign prostatic hyperplasia) (Chronic) Periapical abscess (Acute) Allergic rhinitis (Acute) Peripheral venous insufficiency (Acute) Paroxysmal atrial fibrillation (Acute) Essential hypertension (Acute) Pupillary abnormality, unspecified eye (Acute) Tobacco user (Acute) Alcohol abuse (Chronic) Major depression, single episode (Acute) Hyperlipidemia (Acute) Onychomycosis due to dermatophyte (Acute) Social History Smoking/Tobacco Use Status: Current every day Tobacco Type: cigarettes Smoking packs per day: 1 Smoking cigarettes per day: 20.0 Smoking risk assessment performed?: Yes Alcohol Intake: current Alcohol Intake frequency: 3 or more drinks per day Drug use: Never Do you feel safe at home: Yes Do you feel safe in your relationship?: Yes
[2023-10-27 12:57] LABS: Abs Immature Grans 0.04 10^3/uL (0.0-0.06); Absolute Basophil Count 0.07 10^3/uL (0.0-0.2); Absolute Eosinophil Count 0.27 10^3/uL (0.0-0.7); Absolute Lymphocyte Count 1.31 10^3/uL (1.2-3.4); Absolute Monocyte Count 0.69 10^3/uL (0.1-0.8); Absolute Neutrophil Count 4.74 10^3/uL (1.2-6.7); Eosinophils % 3.8 %; HCT 49.3 % (40.0-50.0); HGB 16.7 g/dL (13.5-17.5); Immature Grans % 0.6 %; Lymphocytes % 18.4 %; MCHC 33.9 % (32.0-36.0); MCV 94 fL (80-95); MPV 10.3 fL (8.0-11.0); Monocytes % 9.7 %; Neutrophils % 66.5 %; Platelet Count 199 10^3/uL (130-400); RBC 5.22 10^6/uL (4.36-5.78); RDW 12.5 % (11.8-14.1); RDW-SD 43.3 fL; WBC 7.12 10^3/uL (4.4-10.8)
[2023-10-27 13:09] LABS: PTT Activated 26.5 sec (23.6-32.8)
[2023-10-27 13:17] LABS: Prothrombin Time 10.1 sec (9.1-11.1)
[2023-10-27 13:21] LABS: ALT 43 U/L (16-63); AST 19 U/L (15-37); Albumin 3.8 g/dL (3.4-5.0); Alkaline Phosphatase 148 U/L (46-116); Anion Gap 10.7 mmol/L (3-11); BUN 18 mg/dL (7-18); Bilirubin, Total 0.54 mg/dL (0.2-1.0); CO2 25.3 mmol/L (21.0-32.0); CREATININE 0.9 mg/dL (0.70-1.30); Calcium 8.9 mg/dL (8.5-10.1); Chloride 103 mmol/L (98-107); Estimated GFR 98.38 (mL/min/1.73m2); Glucose 117 mg/dL (74-106); Sodium 139 mmol/L (136-145); TSH (W/Ref FT4) 3.08 uIU/mL (0.36-3.74)
[2023-10-27 13:24] LABS: ETHANOL BLOOD < 3.0 mg/dL (<10)
[2023-10-27 13:26] LABS: Bilirubin Negative (Negative); Blood Trace-lysed (Negative); Clarity Clear (Clear); Glucose Negative (Negative); Ketones Negative (Negative); Leukocyte Esterase Negative (Negative); Nitrite Negative (Negative); Specific Gravity >= 1.030 (1.005-1.025); Urobilinogen 0.2 mg/dL (Up to 0.2); pH 5.5 (5-8)
[2023-10-27 13:32] LABS: Bacteria Few HPF (Negative); C & S Indicated? No; Casts Negative LPF (Negative); Crystals Negative HPF (Negative); Epithelial Cells Rare HPF (Negative); Mucus Heavy (Negative); WBC 0-2 HPF (0-5)
[2023-10-27 13:50] LABS: *AMPHETAMINES SCREEN URINE Negative (Negative); *BARBITURATES SCREEN URINE Negative (Negative); *BENZODIAZEPINES SCREEN URINE Negative (Negative); Cannabinoids THC Negative (Negative); Cocaine Screen,Urine Negative (Negative); METHADONE URINE SCREEN Negative (Negative); OPIATES URINE SCREEN Negative (Negative)
[2023-10-27 14:03] LABS: Tricyclic Antidepressants Negative (Negative)
== END 2023-10-27 16:28 | disposition home or self-care (01) ==
PROVIDERS: Emergency Provider Emergency Medicine; PCP Student in an Organized Health Care Education/Training Program
DX: F32.A Depression, unspecified (principal); I48.0 Paroxysmal atrial fibrillation; I10 Essential (primary) hypertension; E78.5 Hyperlipidemia, unspecified; F17.210 Nicotine dependence, cigarettes, uncomplicated
CPT/HCPCS: 80053; 80307; 99284; 80320; 81003; 81015; 83735; 84443; 85025; 85610; 85730

== ENCOUNTER 2024-01-18 05:04 | Outpatient (CLI) | payer BC, SELFPAY ==
[2024-01-18 10:32] LABS: Abs Immature Grans 0.05 10^3/uL (0.0-0.06); Absolute Basophil Count 0.09 10^3/uL (0.0-0.2); Absolute Eosinophil Count 0.41 10^3/uL (0.0-0.7); Absolute Lymphocyte Count 1.41 10^3/uL (1.2-3.4); Absolute Monocyte Count 0.84 10^3/uL (0.1-0.8); Absolute Neutrophil Count 6.75 10^3/uL (1.2-6.7); Basophils % 0.9 %; Eosinophils % 4.3 %; HCT 47.4 % (40.0-50.0); HGB 15.8 g/dL (13.5-17.5); Immature Grans % 0.5 %; Lymphocytes % 14.8 %; MCH 32.4 pg (27.0-33.0); MCHC 33.3 % (32.0-36.0); MCV 97 fL (80-95); MPV 10.4 fL (8.0-11.0); Monocytes % 8.8 %; Neutrophils % 70.7 %; Platelet Count 218 10^3/uL (130-400); RBC 4.88 10^6/uL (4.36-5.78); RDW 13.1 % (11.8-14.1); RDW-SD 46.8 fL; WBC 9.55 10^3/uL (4.4-10.8)
[2024-01-18 11:05] LABS: ALT 76 U/L (16-63); AST 36 U/L (15-37); Albumin 3.6 g/dL (3.4-5.0); Alkaline Phosphatase 180 U/L (46-116); BUN 23 mg/dL (7-18); Bilirubin, Total 0.63 mg/dL (0.2-1.0); Calcium 9.4 mg/dL (8.5-10.1); Chloride 104 mmol/L (98-107); Estimated GFR 86.16 (mL/min/1.73m2); Glucose 160 mg/dL (74-106); Potassium 3.8 mmol/L (3.5-5.1); Sodium 140 mmol/L (136-145)
[2024-01-20 10:15] LABS: PSA, Ultrasensitive 16.6 ng/mL (<= 4.5)
[2024-01-22 10:56] LABS: Testosterone, Total 597 ng/dL (240-950)
== END 2024-01-18 05:05 | disposition home or self-care (01) ==
LOC: LBO 05:04
PROVIDERS: PCP Student in an Organized Health Care Education/Training Program; Visit Provider Radiology Radiation Oncology
DX: C61 Malignant neoplasm of prostate (principal)
CPT/HCPCS: 36415; 80053; 84153; 84403; 85025

== ENCOUNTER 2024-02-14 01:22 | Outpatient (CLI) | payer BC, SELFPAY ==
--- NOTE | 2024-02-14 | DI.NM_ITS ---
Exam(s) NM BONE SCAN WHOLE BODY GRP EXAM: NM BONE SCAN WHOLE BODY GRP CLINICAL HISTORY: Malignant neoplasm of prostate, C61; staging. TECHNIQUE: Injected Dose: 24.5 mCi Tc-99m MDP Delayed Images: 2-3 hours. COMPARISON: No exams were available for comparison FINDINGS: Symmetric axial uptake. Bilateral renal excretion is identified. Two focal areas of mildly increased activity noted the skull, 1 posteriorly the other near the vertex . No other areas increased labeling. IMPRESSION: Two areas of increased activity in the skull could represent metastatic disease versus postsurgical o r posttraumatic abnormalities. A head CT could be performed for further evaluation. DATA REPOSITORY:
== END 2024-02-14 01:42 ==
PROVIDERS: PCP Student in an Organized Health Care Education/Training Program; Visit Provider Radiology Radiation Oncology
DX: C61 Malignant neoplasm of prostate (principal); Z98.890 Other specified postprocedural states
CPT/HCPCS: 78306

== ENCOUNTER 2024-05-07 02:22 | Outpatient (CLI) | payer BC, SELFPAY ==
[2024-05-07 16:17] LABS: Abs Immature Grans 0.06 10^3/uL (0.0-0.06); Absolute Basophil Count 0.14 10^3/uL (0.0-0.2); Absolute Eosinophil Count 0.23 10^3/uL (0.0-0.7); Absolute Lymphocyte Count 2.07 10^3/uL (1.2-3.4); Absolute Monocyte Count 0.84 10^3/uL (0.1-0.8); Absolute Neutrophil Count 6.73 10^3/uL (1.2-6.7); Basophils % 1.4 %; Eosinophils % 2.3 %; HCT 47.8 % (40.0-50.0); HGB 15.7 g/dL (13.5-17.5); Immature Grans % 0.6 %; Lymphocytes % 20.6 %; MCHC 32.8 % (32.0-36.0); MCV 98 fL (80-95); MPV 10.4 fL (8.0-11.0); Monocytes % 8.3 %; Neutrophils % 66.8 %; Platelet Count 226 10^3/uL (130-400); RDW 12.9 % (11.8-14.1); RDW-SD 46.1 fL; WBC 10.07 10^3/uL (4.4-10.8)
[2024-05-07 16:49] LABS: ALT 105 U/L (16-63); AST 45 U/L (15-37); Albumin 3.7 g/dL (3.4-5.0); Alkaline Phosphatase 196 U/L (46-116); Anion Gap 10.7 mmol/L (3-11); BUN 19 mg/dL (7-18); Bilirubin, Total 0.46 mg/dL (0.2-1.0); CO2 26.3 mmol/L (21.0-32.0); Calcium 9.3 mg/dL (8.5-10.1); Chloride 104 mmol/L (98-107); Estimated GFR 86.16 (mL/min/1.73m2); Glucose 139 mg/dL (74-106); Potassium 3.5 mmol/L (3.5-5.1); Sodium 141 mmol/L (136-145); Total Protein 8.3 g/dL (6.4-8.2)
[2024-05-10 13:27] LABS: PSA, Ultrasensitive 7.7 ng/mL (<= 4.5)
[2024-05-12 11:15] LABS: Testosterone, Total 28 ng/dL (240-950)
== END 2024-05-07 02:23 | disposition home or self-care (01) ==
LOC: LBO 02:22
PROVIDERS: PCP Student in an Organized Health Care Education/Training Program; Visit Provider Radiology Radiation Oncology
DX: C61 Malignant neoplasm of prostate (principal)
CPT/HCPCS: 36415; 80053; 84153; 84403; 85025

== ENCOUNTER 2024-06-27 02:25 | Outpatient (CLI) | payer BC, SELFPAY ==
[2024-06-27 16:04] LABS: Abs Immature Grans 0.05 10^3/uL (0.0-0.06); Absolute Basophil Count 0.07 10^3/uL (0.0-0.2); Absolute Eosinophil Count 0.19 10^3/uL (0.0-0.7); Absolute Lymphocyte Count 1.34 10^3/uL (1.2-3.4); Absolute Monocyte Count 0.57 10^3/uL (0.1-0.8); Absolute Neutrophil Count 5.93 10^3/uL (1.2-6.7); Basophils % 0.9 %; Eosinophils % 2.3 %; HCT 44.1 % (40.0-50.0); HGB 14.7 g/dL (13.5-17.5); Immature Grans % 0.6 %; Lymphocytes % 16.4 %; MCH 32.2 pg (27.0-33.0); MCHC 33.3 % (32.0-36.0); MCV 97 fL (80-95); Neutrophils % 72.8 %; RBC 4.57 10^6/uL (4.36-5.78); RDW 12.5 % (11.8-14.1); RDW-SD 44.6 fL; WBC 8.15 10^3/uL (4.4-10.8)
[2024-06-27 16:18] LABS: Diff Comment PLT Morph Reviewed; RBC Morphology Normal
[2024-06-27 16:39] LABS: ALT 92 U/L (16-63); AST 39 U/L (15-37); Albumin 3.3 g/dL (3.4-5.0); Alkaline Phosphatase 196 U/L (46-116); Anion Gap 12.6 mmol/L (3-11); BUN 14 mg/dL (7-18); Bilirubin, Total 0.6 mg/dL (0.2-1.0); CO2 21.4 mmol/L (21.0-32.0); CREATININE 0.9 mg/dL (0.70-1.30); Calcium 9.1 mg/dL (8.5-10.1); Chloride 103 mmol/L (98-107); Estimated GFR 97.78 (mL/min/1.73m2); Glucose 193 mg/dL (74-106); Potassium 3.9 mmol/L (3.5-5.1); Sodium 137 mmol/L (136-145); Total Protein 7.7 g/dL (6.4-8.2)
[2024-06-29 22:23] LABS: PSA, Ultrasensitive 3.3 ng/mL (<= 4.5)
[2024-07-02 15:24] LABS: Testosterone, Total 15 ng/dL (240-950)
== END 2024-06-27 02:26 | disposition home or self-care (01) ==
PROVIDERS: PCP Student in an Organized Health Care Education/Training Program; Visit Provider Radiology Radiation Oncology
DX: C61 Malignant neoplasm of prostate (principal)
CPT/HCPCS: 36415; 80053; 84153; 84403; 85025

== ENCOUNTER 2024-09-28 11:24 | Outpatient (CLI) | payer BC, SELFPAY ==
[2024-09-28 11:32] LABS: Abs Immature Grans 0.06 10^3/uL (0.0-0.06); Absolute Basophil Count 0.07 10^3/uL (0.0-0.2); Absolute Eosinophil Count 0.26 10^3/uL (0.0-0.7); Absolute Lymphocyte Count 0.66 10^3/uL (1.2-3.4); Absolute Monocyte Count 0.45 10^3/uL (0.1-0.8); Absolute Neutrophil Count 4.46 10^3/uL (1.2-6.7); Basophils % 1.2 %; Eosinophils % 4.4 %; HCT 44.1 % (40.0-50.0); HGB 14.9 g/dL (13.5-17.5); Lymphocytes % 11.1 %; MCHC 33.8 % (32.0-36.0); MCV 98 fL (80-95); Monocytes % 7.6 %; Neutrophils % 74.7 %; Platelet Count 196 10^3/uL (130-400); RBC 4.51 10^6/uL (4.36-5.78); RDW 11.9 % (11.8-14.1); WBC 5.96 10^3/uL (4.4-10.8)
[2024-09-28 12:26] LABS: ALT 111 U/L (16-63); AST 51 U/L (15-37); Albumin 3.8 g/dL (3.4-5.0); Alkaline Phosphatase 170 U/L (46-116); Anion Gap 13.5 mmol/L (3-11); BUN 16 mg/dL (7-18); Bilirubin, Total 0.6 mg/dL (0.2-1.0); CO2 23.5 mmol/L (21.0-32.0); CREATININE 0.7 mg/dL (0.70-1.30); Calcium 9.2 mg/dL (8.5-10.1); Chloride 100 mmol/L (98-107); Estimated GFR 105.49 (mL/min/1.73m2); Glucose 164 mg/dL (74-106); Potassium 3.7 mmol/L (3.5-5.1); Sodium 137 mmol/L (136-145); Total Protein 8.1 g/dL (6.4-8.2)
[2024-10-01 13:19] LABS: PSA, Ultrasensitive 0.07 ng/mL (<= 4.5)
[2024-10-05 10:36] LABS: Testosterone, Total 16 ng/dL (240-950)
== END 2024-09-28 11:25 | disposition home or self-care (01) ==
LOC: LBO 11:25
PROVIDERS: PCP Student in an Organized Health Care Education/Training Program; Visit Provider Radiology Radiation Oncology
DX: C61 Malignant neoplasm of prostate (principal)
CPT/HCPCS: 36415; 80053; 84153; 84403; 85025

== ENCOUNTER 2024-12-14 16:34 | Outpatient (CLI) | payer MEDICAID, SELFPAY ==
[2024-12-14 12:41] LABS: Abs Immature Grans 0.06 10^3/uL (0.0-0.06); HCT 44.6 % (40.0-50.0); HGB 14.7 g/dL (13.5-17.5); Immature Grans % 1.0 %; MCH 32.5 pg (27.0-33.0); MCHC 33.0 % (32.0-36.0); MCV 99 fL (80-95); MPV 9.8 fL (8.0-11.0); Platelet Count 202 10^3/uL (130-400); RBC 4.53 10^6/uL (4.36-5.78); RDW 12.8 % (11.8-14.1); RDW-SD 46.5 fL; WBC 5.95 10^3/uL (4.4-10.8)
[2024-12-14 13:05] LABS: ALT 70 U/L (16-63); AST 34 U/L (15-37); Albumin 3.5 g/dL (3.4-5.0); Alkaline Phosphatase 152 U/L (46-116); Anion Gap 11.9 mmol/L (3-11); BUN 12 mg/dL (7-18); Bilirubin, Total 0.4 mg/dL (0.2-1.0); CO2 27.1 mmol/L (21.0-32.0); Calcium 9.0 mg/dL (8.5-10.1); Chloride 101 mmol/L (98-107); Estimated GFR 97.17 (mL/min/1.73m2); Glucose 183 mg/dL (74-106); Potassium 3.9 mmol/L (3.5-5.1); Sodium 140 mmol/L (136-145); Total Protein 8.0 g/dL (6.4-8.2)
== END 2024-12-14 16:35 | disposition home or self-care (01) ==
LOC: LBO 16:36
PROVIDERS: PCP Student in an Organized Health Care Education/Training Program; Visit Provider Radiology Radiation Oncology
DX: C61 Malignant neoplasm of prostate (principal)
CPT/HCPCS: 36415; 80053; 84153; 84403; 85025

== ENCOUNTER 2025-01-15 18:27 | Emergency (ER) | payer MEDICAID, SELFPAY ==
[2025-01-15] VITALS (8 sets, daily range): BP systolic 136; BP diastolic 88; PULSE 83–105; RESP 18; TEMP 36.2; O2SAT 93–99
--- NOTE | 2025-01-15 19:30 | DI.RAD_ITS ---
Exam(s) XR SHOULDER LT COMPLETE 2+V XR ELBOW LT COMPLETE XR HUMERUS LT EXAM: XR HUMERUS LT CLINICAL HISTORY: shoulder fracture/dislocation. TECHNIQUE: 2D digital imaging was performed. Two views of the shoulder and two views of the humerus. Three views of the elbow COMPARISON: None FINDINGS: BONES: There is an anterior shoulder dislocation. There is a fracture fragment at the greater tuberosity which is displaced in located at the inferior aspect of the glenoid. Humeral head may be impacted on the inferior rim of the glenoid. The glenoid is not well profiled on these exams. No bony destructive lesion is seen. The elbow joint is unremarkable. SOFT TISSUE: Soft tissue swelling. IMPRESSION: Anterior shoulder dislocation with fracture of the greater tuberosity. The elbow is unremarkable. The preliminary [facility] report was reviewed. DATA REPOSITORY: RADIATION DOSE DELIVERED:
--- NOTE | 2025-01-15 19:30 | DI.CT_ITS ---
Exam(s) CT HEAD CERVICAL SPINE WO EXAM: CT HEAD CERVICAL SPINE WO CLINICAL HISTORY: fall + HS. TECHNIQUE: Imaging Protocol: Axial computed tomography images with coronal and sagittal reformatted images were created and reviewed COMPARISON: No exams were available for comparison FINDINGS: CT Head: Ventricles and Extra axial spaces: Normal in size and morphology for the patient's age. Hemorrhage: None. Cerebral parenchyma: There is no evidence of an acute territorial infarct or mass effect. Midline shift: None. Brainstem/Cerebellum: Normal. Calvarium: Normal. Visualized Paranasal sinuses/Mastoids: There is chronic paranasal sinusitis. Soft Tissues: Unremarkable. CT Cervical Spine: Bones: No acute fracture or subluxation. Age-appropriate degenerative changes are seen in the cervical spine. Soft Tissues: Unremarkable. Lung Apices: Clear. IMPRESSION: 1. No acute intracranial process. 2. No acute fracture or subluxation in the cervical spine. 3. The preliminary [facility] report was reviewed. RADIATION DOSE DELIVERED: 1,294.65mGy.cm Total DLP DATA REPOSITORY: All CT scans at this facility are submitted to the National Radiology Data Registry (NRDR) Dose Index Registry (DIR) with the [employer] ([employer]). RADIATION OPTIMIZATION: All CT scans at this facility use at least one of these dose optimization techniques: automated exposure control; mA and/or kV adjustment per patient size (includes targeted exams where dose is matched to clinical indication); or iterative reconstruction.
--- NOTE | 2025-01-15 19:38 | W.ED.GENAD ---
Discharge Plan Discharge Details Chief Complaint: Orthopedic Clinical Impression: Acute hypokalemia, Dislocation of shoulder, Alcohol intoxication Primary Care Provider: Yvan Kong ED Provider: Lea Peter Home Meds and New Rx's Prescriptions: No Action lorazepam 0.5 mg tablet 0.5 mg PO DAILY PRN (Reason: pre-medication for MRI) Qty: 2 0RF Rx Instructions: Take one tab 30 mins prior to MRI. May repeat right before MRI if needed multivitamin Tablet 1 tab PO DAILY polyethylene glycol 3350 17 gram/dose powder 238 g PO ONCE Qty: 238 0RF Rx Instructions: take per colonoscopy instructions bisacodyl [Dulcolax (bisacodyl)] 5 mg tablet,delayed release (DR/EC) 5 mg PO ONCE Qty: 4 0RF Rx Instructions: take per colonoscopy instructions tamsulosin 0.4 mg capsule 0.4 mg PO DAILY diltiazem HCl 120 mg capsule,extended release 24hr 120 mg PO DAILY Qty: 30 0RF HPI General Mode of arrival: ambulatory. Date/Time Provider Initiated Documentation: 01/15/25 18:37. Limitations to Documentation: no limitations. Information obtained by: patient and family. HPI Narrative: 59yo M with hx HTN, prostate ca, pAF on diltazem and not on AC, presenting for left shoulder pain. About an hour prior to arrival slipped going up the stairs; was about 4 steps from the bottom when he fell and landed on his left shoulder. Severe left shoulder pain since then; denies pain or injury elsewhere. Is not sure if he struck his head or lost conciousness. No numbness, tingling, or weakness in his left arm though cannot move at shoulder 2/t pain. No headache, neck pain, chest pain, shortness of breath, abdominal pain, numbness, tingling, weakness, vertigo, vision changes, or other concerns. Has been drinking ETOH today. Related Data Home Medications ?Medication ?Instructions ?Recorded ?Confirmed diltiazem HCl 120 mg 120 mg PO DAILY #30 caps 08/14/18 01/15/25 capsule,extended release 24 hr tamsulosin 0.4 mg capsule 0.4 mg PO DAILY 04/21/23 01/15/25 bisacodyl 5 mg tablet,delayed 5 mg PO ONCE colonscopy bowel prep 06/15/23 01/15/25 release (Dulcolax (bisacodyl)) #4 tabs multivitamin 1 tab PO DAILY 06/15/23 01/15/25 polyethylene glycol 3350 17 238 g PO ONCE colonoscopy prep 06/15/23 01/15/25 gram/dose oral powder #238 grams lorazepam 0.5 mg tablet 0.5 mg PO DAILY PRN pre-medication 07/12/23 01/15/25 for MRI #2 tabs Previous Rx's ?Medication ?Instructions ?Recorded diltiazem HCl 120 mg 120 mg PO DAILY #30 caps 08/14/18 capsule,extended release 24 hr bisacodyl 5 mg tablet,delayed 5 mg PO ONCE colonscopy bowel prep 06/15/23 release (Dulcolax (bisacodyl)) #4 tabs polyethylene glycol 3350 17 238 g PO ONCE colonoscopy prep 06/15/23 gram/dose oral powder #238 grams lorazepam 0.5 mg tablet 0.5 mg PO DAILY PRN pre-medication 07/12/23 for MRI #2 tabs Allergies Allergy/AdvReac Type Severity Reaction Status Date / Time amoxicillin Allergy Severe Anaphylaxis Verified 01/15/25 18:35 General Stated Complaint: Orthopedic RAVI: 4 Review of Systems Narrative: see HPI Exam Narrative Exam Narrative: GENERAL: Alert, non-toxic. Clincially intoxicated. SKIN: Warm and well perfused. No rashes, bruises, discolorations or abrasions. HEAD: Atraumatic, normocephalic without edema, discoloration or evidence of trauma. Facial bones without deformities or tenderness. EYES: PERRL. No scleral icterus or conjunctival injection. EARS: No hemotympanum. NOSE: No discharge, tenderness, laxity. No nasal septal hematoma. MOUTH: No malocclusion or trismus. Moist mucus membranes without blood. NECK: Trachea midline. No discolorations or edema. CV: Regular rate and rhythm, Normal s1 and s2. No murmurs, rubs, or gallops. PV: Radial pulses 2+ bilaterally and symmetric. 2+ capillary refill. No extremity edema. CHEST: No abrasions or ecchymosis. Chest symmetric with respirations. No chest wall tenderness. N Lungs are clear to auscultation bilaterally. ABDOMEN: No ecchymosis or abrasions. Soft, nondistended, nontender. BACK: No abrasions, skin openings, or ecchymosis. Spine without bony tenderness, no step offs. PELVIC: Pelvis stable, nontender to lateral compression MSK: LUE: Left shoulder deformity, held in adduction. Pain with attempted ROM at shoulder, no pain with ROM at eblow or wrist. No bony tenderness. Sensation intact to light touch throughout and symmetric with right. Brisk capillary refill all digits. Good color and temperature. Otherwise no gross deformities and tolerates full range of motion of extremities without tenderness. Neuro: ? GCS 14, oriented to person and place but not time.? PERRL.? EOMI.? Fluent speech, no dysarthria. Motor- Left shoulder not tested 2/t pain, otherwise 5/5 strength symmetric bilateral upper and lower extremities Sensation- ?Intact to light touch and symmetric multiple dermatomes including upper and lower extremities CRANIAL NERVES: II: Pupils equal and reactive, III, IV, : EOM intact, no gaze preference or deviation, no nystagmus. V: normal sensation in V1, V2, and V3 segments bilaterally VII: no asymmetry, no nasolabial fold flattening VIII: normal hearing to speech IX, X: normal palatal elevation, no uvular deviation XI: Not tested XII: midline tongue protrusion Course Vital Signs Vital signs: Vital Signs Temperature 36.2 C L 01/15/25 18: Pulse 83 01/15/25 18:29 Respiratory Rate 18 01/15/25 18:29 Blood Pressure 136/88 01/15/25 18:29 Pulse Oximetry 93 01/15/25 18: Temperature 36.2 C L 01/15/25 18:29 Pulse 83 01/15/25 18:29 Respiratory Rate 18 01/15/25 18:29 Blood Pressure 136/88 01/15/25 18:29 Pulse Oximetry 93 01/15/25 18:29 Oxygen Delivery Method Room Air 01/15/25 18:29 Oxygen Flow Rate 0 01/15/25 18:29 Pain Level 10 01/15/25 19:27 Medical Decision Making 59yo M with hx HTN, prostate ca, pAF on diltazem and not on AC, presenting for left shoulder pain. About an hour prior to arrival slipped going up the stairs; was about 4 steps from the bottom when he fell and landed on his left shoulder. Unknown HS or LOC. Vital signs reassuring on arrival, clinically intoxicated on exam with left shoulder deformity. Neurovascular intact on exam; no other significant traumatic findings. Unable to clinically clear c-spine given intoxication. Will get XR, CT head-spine. Given age and likely need for sedation will send labs including CBC/Metabolic panel/ETOH. Will start with tylenol and morphine for pain. -On reassessment pt with pain improved but still present, has not yet gone down for imaging. Given 50mcg prior to going to DR. -Labs reviewed as below, CBC with mild leukocytosis (non specific and no anemia), CMP with hypokalemia at 2.6 (repeat ordered to confirm and is 2.7) and mild LFT elevations, Mg normal, ETOH 185. -IV and PO potassium replacement ordered, EKG SR with some hypokalemic changes; T wave flattening and QRS of 120 (~100 on most recent prior). -Plain film shoulder independently reviewed; dislocation on my view, radiology read with 'fracture/dislocation at the glenohumeral joint, anterior inferior dislocation of the left humerus with likely fracture of the inferior glenoid'. -Patient returned to room without CT being performed; reportedly was unable to tolerate positioning in CT. Certainly will not attempt reduction without c-spine imaging in this patient so returned to CT with myself and nursing in accompaniment, plan for sufficient fentanyl to tolerate imaging. Narcan brought to CT as well. Premedicated with zofran, given a total of 150mcg to tolerate CT -CT head and c-spine independently reviewed; no ICH or mass or displaced cervical spinal fracture on my view; radiology read with no acute findings. No [facility] orthopedics on tonight; discussed with [facility] orthopedics Dr. Shaffer who on imaging review is concerned for potential for humeral fracture. Advised CT of shoulder as well as XR humerus and elbow; if has no humeral neck fracture likely okay to reduce in ED including okay for reduction of has isolated greater tuberosity fx. Advised post reduction CT. Signed out to Dr. Luo, plan as above. Lab Data Lab results reviewed: Yes I reviewed the patient's lab results. Labs: Laboratory Tests Range/Units 01/15/25 01/15/25 20:18 21:02 WBC (4.4-10.8) 10^3/uL 11.54 H RBC (4.36-5.78) 10^6/uL 4.54 Hgb (13.5-17.5) g/dL 14.9 Hct (40.0-50.0) % 44.2 MCV (80-95) fL 97 H MCH (27.0-33.0) pg 32.8 MCHC (32.0-36.0) % 33.7 RDW (11.8-14.1) % 13.0 Plt Count (130-400) 10^3/uL 181 MPV (8.0-11.0) fL 10.6 Immature Gran % % 0.8 Neutrophils % % 91.2 Lymphocytes % % 3.6 Monocytes % % 3.9 Eosinophils % % 0.2 Basophils % % 0.3 Nucleated RBC % (0.0-0.3) % 0.0 Absolute Neutrophils (1.2-6.7) 10^3/uL 10.52 H Absolute Lymphocytes (1.2-3.4) 10^3/uL 0.42 L Absolute Monocytes (0.1-0.8) 10^3/uL 0.45 Absolute Eosinophils (0.0-0.7) 10^3/uL 0.02 Absolute Basophils (0.0-0.2) 10^3/uL 0.03 Sodium (136-145) mmol/L 139 Potassium (3.5-5.1) mmol/L 2.6 L* 2.7 L* Chloride (98-107) mmol/L 99 Carbon Dioxide (21.0-32.0) mmol/L 23.2 Anion Gap (3-11) mmol/L 16.8 H BUN (7-18) mg/dL 8 Creatinine (0.70-1.30) mg/dL 0.8 Est GFR (CKD-EPI 2020) (mL/min/1.73m2) 100.69 Glucose (74-106) mg/dL 185 H Calcium (8.5-10.1) mg/dL 8.6 Magnesium (1.8-2.4) mg/dL 2.1 Total Bilirubin (0.2-1.0) mg/dL 0.4 AST (15-37) U/L 51 H ALT (16-63) U/L 93 H Alkaline Phosphatase (46-116) U/L 137 H Total Protein (6.4-8.2) g/dL 7.8 Albumin (3.4-5.0) g/dL 3.7 Ethyl Alcohol (<10) mg/dL 185.6 H Critical Care Time Critical Care Time Critical Care Time: Yes Total Critical Care Time: 32 Attestation: Due to a high probability of clinically significant, life threatening deterioration, the patient required my highest level of preparedness to intervene emergently and I personally spent this critical care time directly and personally managing the patient. This critical care time included obtaining a history; examining the patient; pulse oximetry; ordering and review of studies; arranging urgent treatment with development of a management plan; evaluation of patient's response to treatment; frequent reassessment; and, discussions with other providers. This critical care time was performed to assess and manage the high probability of imminent, life-threatening deterioration that could result in multi-organ failure. It was exclusive of separately billable procedures and treating other patients PFSH All Active Problems (Updated 01/16/25 @ 00:43 by Lea Peter MD) Alcohol intoxication (Acute) Dislocation of shoulder (Acute) Acute hypokalemia (Acute) Prostate cancer (Chronic) Serous retinal detachment of left eye (Acute) Elevated PSA (Acute) Prediabetes (Acute) Allergic contact dermatitis (Acute) BPH (benign prostatic hyperplasia) (Chronic) Periapical abscess (Acute) Allergic rhinitis (Acute) Peripheral venous insufficiency (Acute) Paroxysmal atrial fibrillation (Acute) Essential hypertension (Acute) Pupillary abnormality, unspecified eye (Acute) Tobacco user (Acute) Alcohol abuse (Chronic) Major depression, single episode (Acute) Hyperlipidemia (Acute) Onychomycosis due to dermatophyte (Acute) Social History Smoking/Tobacco Use Status: Current every day Tobacco Type: cigarettes Smoking packs per day: 2 Smoking cigarettes per day: 40.0 Smoking risk assessment performed?: Yes Alcohol Intake: current Alcohol Intake frequency: 3 or more drinks per day Drug use: Never Do you feel safe at home: Yes Do you feel safe in your relationship?: Yes PAWSS Have you Been Recently Intoxicated or Drunk Within the Last 30 days?: No Have you Ever Experienced Previous Episodes of Alcohol Withdrawal?: No Have you ever Experienced Withdrawal Seizures?: No Have you ever Experienced Delirium Tremens(DT)s?: No Have you ever undergone Alcohol Rehabilitation Treatment (i.e, inpt ot outpatient treatment programs)?: No Have you ever Experienced Blackouts?: No Have you ever Combined Alcohol with other Downers within the last 90 days?: No Have you ever Combined Alcohol with any other Substance of Abuse during the last 90 days?: No Positive Blood Alcohol level on Presentation? [PCS.BAL]: No Evidence of Increased Autonomic Activity (i.e. HR>120, tremor, sweating, agitation, nausea)?: No Result: 0
[2025-01-15] MEDS: Acetaminophen 500 MG TAB 1000 MG PO (20:17)
[2025-01-15] MEDS: MORPHine 4 MG/ML SYR IVP (20:17)
[2025-01-15 20:28] LABS: Abs Immature Grans 0.09 10^3/uL (0.0-0.06); HCT 44.2 % (40.0-50.0); HGB 14.9 g/dL (13.5-17.5); Immature Grans % 0.8 %; MCH 32.8 pg (27.0-33.0); MCHC 33.7 % (32.0-36.0); MCV 97 fL (80-95); MPV 10.6 fL (8.0-11.0); Platelet Count 181 10^3/uL (130-400); RBC 4.54 10^6/uL (4.36-5.78); RDW 13.0 % (11.8-14.1); RDW-SD 46.4 fL; WBC 11.54 10^3/uL (4.4-10.8)
--- NOTE | 2025-01-15 20:45 | RT.EKG_ITS ---
APPROVED REPORT Exam: Resting ECG Reason for Exam: hypokalemia Patient Location: E HR:98 bpm ECG Measurements Heart Rate 98 AXIS CA 209 P 64 QRSd 122 QRS -19 QT 388 T 51 QTc 494 Conclusion Sinus rhythm...normal P axis, V-rate 60- 99 Borderline prolonged CA interval...CA >207, V-rate 91-120 Probable left atrial enlargement...P >50mS, <-0.10mV V1 Nonspecific intraventricular conduction delay...QRSd >115mS, not LBBB/RBBB no ST segment or T wave abnormalities to suggest occlusive KS
[2025-01-15 20:48] LABS: ALT 93 U/L (16-63); AST 51 U/L (15-37); Albumin 3.7 g/dL (3.4-5.0); Alkaline Phosphatase 137 U/L (46-116); Anion Gap 16.8 mmol/L (3-11); BUN 8 mg/dL (7-18); Bilirubin, Total 0.4 mg/dL (0.2-1.0); CO2 23.2 mmol/L (21.0-32.0); Calcium 8.6 mg/dL (8.5-10.1); Chloride 99 mmol/L (98-107); Estimated GFR 100.69 (mL/min/1.73m2); Glucose 185 mg/dL (74-106); Magnesium 2.1 mg/dL (1.8-2.4); Sodium 139 mmol/L (136-145); Total Protein 7.8 g/dL (6.4-8.2)
[2025-01-15 20:50] LABS: Potassium 2.6 mmol/L (3.5-5.1)
[2025-01-15] MEDS: fentaNYL 100 MCG/2 ML VIAL 50 MCG IVP (20:58)
[2025-01-15 21:22] LABS: Potassium 2.7 mmol/L (3.5-5.1)
[2025-01-15] MEDS: Ondansetron 4 MG/2 ML VIAL (22:03)
[2025-01-15] MEDS: fentaNYL 100 MCG/2 ML VIAL ×2 (22:04→22:12)
[2025-01-15] MEDS: Potassium Chloride 20 MEQ TABCR 40 MEQ PO (22:24)
[2025-01-15] MEDS: POTASSIUM CHLORIDE 20 MEQ/100 ML BAG 50 MEQ IV_INF (22:25)
--- NOTE | 2025-01-15 22:50 | DI.VRAD_ITS ---
PROCEDURE INFORMATION: Exam: XR Left Shoulder Exam date and time: 01/15/2025 9:29 PM Age: 59 years old Clinical indication: Injury or trauma; Blunt trauma (contusions or hematomas); Left; Injury date: 01/15/25; Injury details: Fall, shoulder pain; Unable to lower arm TECHNIQUE: Imaging protocol: Radiologic exam of the left shoulder. Views: 2 or more views. COMPARISON: NM BONE SCAN WHOLE BODY [facility] 02/14/2024 7:35 AM FINDINGS: Bones/joints: There is anterior inferior dislocation of the left humerus. There is likely a fracture of the inferior glenoid. The visualized ribs are intact. Soft tissues: Unremarkable. IMPRESSION: Fracture/dislocation at the glenohumeral joint. Dictated and Authenticated by: Franci Espinoza MD. Orderin [place] Tate MD
--- NOTE | 2025-01-15 22:56 | DI.VRAD_ITS ---
PROCEDURE INFORMATION: Exam: CT Head Without Contrast Exam date and time: 01/15/2025 8:49 PM Age: 59 years old Clinical indication: Injury or trauma; Blunt trauma (contusions or hematomas); Consciousness not specified; Injury details: Fall + hs TECHNIQUE: Imaging protocol: Computed tomography of the head without contrast. COMPARISON: NM BONE SCAN WHOLE BODY [facility] 02/14/2024 7:35 AM FINDINGS: Brain: No acute intracranial hemorrhage or mass lesions. No midline shift. Normal gomez-white differentiation. Cerebral ventricles: No ventriculomegaly. Paranasal sinuses: There is mild mucosal thickening of the right frontal sinus in the ethmoid air cells. The other paranasal sinuses are clear. Mastoid air cells: Visualized mastoid air cells are well aerated. Bones: Unremarkable. No acute fracture. Soft tissues: Unremarkable. IMPRESSION: No acute intracranial findings. PROCEDURE INFORMATION: Exam: CT Cervical Spine Without Contrast Exam date and time: 01/15/2025 8:49 PM Age: 59 years old Clinical indication: Injury or trauma; Blunt trauma (contusions or hematomas); Consciousness not specified; Injury details: Fall + hs TECHNIQUE: Imaging protocol: Computed tomography of the cervical spine without contrast. COMPARISON: NM BONE SCAN WHOLE BODY [facility] 02/14/2024 7:35 AM FINDINGS: Bones: Mild degenerative changes are present within the cervical spine including intervertebral disc space narrowing, endplate sclerosis, and osteophytosis. No acute fracture or dislocation. No compression deformities. Lungs: Lung apices are normal. Soft tissues: Unremarkable. IMPRESSION: No acute cervical spine injury. Dictated and Authenticated by: Franci Espinoza MD. Orderin [place] Tate MD
[2025-01-15] MEDS: Nicotine 2 MG LOZG SUC (23:04)
[2025-01-16] VITALS (16 sets, daily range): BP systolic 186–217; BP diastolic 99–128; PULSE 103–116; RESP 16–24; O2SAT 92–96
--- NOTE | 2025-01-16 00:15 | DI.CT_ITS ---
Exam(s) CT UPPER EXTREMITY LT WO EXAM: CT UPPER EXTREMITY LT WO CLINICAL HISTORY: dislocation/fracture. TECHNIQUE: Imaging Protocol: Axial computed tomography images with coronal and sagittal reformatted images were created and reviewed. COMPARISON: CR,XR XR SHOULDER LT COMPLETE 2+V from 01/15/2025 FINDINGS: Exam limited secondary to decreased patient cooperation. Bones: There is an anterior and inferior shoulder dislocation. There is a comminuted displaced fracture of the lateral aspect of the greater tuberosity. The acromioclavicular joint is intact. No glenoid fracture is identified. There is a joint effusion. No lytic or sclerotic lesions are identified. Soft Tissues: Normal. IMPRESSION: 1. Anterior and inferior left shoulder dislocation with a large comminuted displaced fracture involving the lateral aspect of the greater tuberosity. 2. The preliminary [facility] report was reviewed. RADIATION DOSE DELIVERED: 451.23mGy.cm Total DLP 451.23mGy.cm Total DLP DATA REPOSITORY: All CT scans at this facility are submitted to the National Radiology Data Registry (NRDR) Dose Index Registry (DIR) with the [employer] ([employer]). RADIATION OPTIMIZATION: All CT scans at this facility use at least one of these dose optimization techniques: automated exposure control; mA and/or kV adjustment per patient size (includes targeted exams where dose is matched to clinical indication); or iterative reconstruction.
[2025-01-16] MEDS: Ketorolac 15 MG/ML VIAL IVP (00:17)
[2025-01-16] MEDS: MORPHine 4 MG/ML SYR IVP (00:17)
[2025-01-16] MEDS: POTASSIUM CHLORIDE 20 MEQ/100 ML BAG 50 MEQ IV_INF (00:18)
[2025-01-16] MEDS: fentaNYL 100 MCG/2 ML VIAL ×2 (01:25→01:34)
[2025-01-16] MEDS: Nicotine 2 MG LOZG SUC (02:32)
--- NOTE | 2025-01-16 02:40 | DI.VRAD_ITS ---
PROCEDURE INFORMATION: Exam: XR Left Humerus Exam date and time: 01/16/2025 1:52 AM Age: 59 years old Clinical indication: Injury or trauma; Blunt trauma (contusions or hematomas); Arm, upper; Left; Injury date: 01/15/25; Injury details: Fall, shoulder dislocation TECHNIQUE: Imaging protocol: Radiologic exam of the left humerus. Views: 2 or more views. COMPARISON: CT UPPER EXTREMITY LT WO 01/16/2025 1:37 AM FINDINGS: Bones/joints: There is anterior inferior dislocation of the left humerus. There is likely a displaced lateral humeral head fracture. No other fracture or dislocation. Soft tissues: Unremarkable. IMPRESSION: Anterior inferior fracture/dislocation of the left proximal humerus. Dictated and Authenticated by: Franci Espinoza MD. Orderin [place] Tate MD
--- NOTE | 2025-01-16 02:41 | DI.VRAD_ITS ---
PROCEDURE INFORMATION: Exam: XR Left Elbow Exam date and time: 01/16/2025 1:57 AM Age: 59 years old Clinical indication: Injury or trauma; Fall; Blunt trauma (contusions or hematomas); Elbow; Left; Injury date: 01/15/25 TECHNIQUE: Imaging protocol: Radiologic exam of the left elbow. Views: 3 or more views. COMPARISON: CT UPPER EXTREMITY LT WO 01/16/2025 1:37 AM FINDINGS: Bones/joints: No acute fracture or dislocation. No suspicious bony lesions. Soft tissues: Unremarkable. IMPRESSION: No acute radiographic findings. If pain persists, consider repeat imaging in 5-7 days to exclude occult fracture. Dictated and Authenticated by: Franci Espinoza MD. Orderin [place] Tate MD
--- NOTE | 2025-01-16 02:48 | DI.VRAD_ITS ---
PROCEDURE INFORMATION: Exam: CT Left Upper Extremity Without Contrast, Shoulder Exam date and time: 01/16/2025 1:37 AM Age: 59 years old Clinical indication: Injury or trauma; Fall; Humerus, proximal end; Left; Injury date: 01/15/25; Injury details: Dislocation. Fracture TECHNIQUE: Imaging protocol: Computed tomography of the left upper extremity without contrast. Exam focused on the shoulder. Radiation optimization: All CT scans at this facility use at least one of these dose optimization techniques: automated exposure control; mA and/or kV adjustment per patient size (includes targeted exams where dose is matched to clinical indication); or iterative reconstruction. COMPARISON: CR XR SHOULDER LT COMPLETE 2+V 01/15/2025 9:29 PM FINDINGS: Bones/joints: The visualized cervicothoracic spine is intact. The visualized ribs are intact. There is inferior dislocation of the left humeral head. There is a large Hill-Sachs deformity present. A comminuted displaced inferolateral humeral fracture fragment is noted. This is displaced approximately 1.2 cm lateral to the humeral head. No definite glenoid fracture visualized. There is a moderate-sized glenohumeral joint effusion. Soft tissues: Normal. Lungs: The visualized lung is clear. IMPRESSION: Inferior left humeral head dislocation with large Hill-Sachs deformity and displaced humeral head fracture fragment. Dictated and Authenticated by: Franci Espinoza MD. Orderin [place] Tate MD
--- NOTE | 2025-01-16 03:00 | W.EDPROG ---
Date of service: 01/16/25 Time of Service: 03:00 Medical Decision Making Patient was signed out to me by Dr. Peter, please read her physical exam, assessment and plan. At time of signout we were awaiting the CT scan results and a callback from [facility]. CT scan shows evidence of inferior left humeral head dislocation with a large Hill-Sachs deformity and a displaced humeral head fracture fragment. It was a notable prolonged wait for the callback from [facility] over 3-1/2 hours. During that time we were reached out to by our local smart energy specialist Dr. Luther. He reviewed the images and felt that it was reasonable and appropriate to reduce the dislocated shoulder. Patient agreed and consented to the procedure. Patient was sedated with 230 mg of propofol. Sedation was successful. He had no apnea whatsoever, and for that matter only achieved light/light moderate sedation from that level of propofol. Left shoulder was reduced without complication. He was splinted. Orthopedics does request repeat CT imaging for post reduction fracture reassessment. 6:55 AM Repeat blood work shows notable improvement of potassium level. Electrolytes have stabilized. Patient is doing well. Repeat neurovascular exam shows no neurovascular deficits in the left arm post reduction. We are still pending repeat CT and x-ray results. Patient will be signed out to my colleague Dr. Luther. Otherwise expect discharge for the patient with planned outpatient follow-up with orthopedics. FINDINGS: Bones/joints: The visualized cervicothoracic spine is intact. The visualized ribs are intact. There is inferior dislocation of the left humeral head. There is a large Hill-Sachs deformity present. A comminuted displaced inferolateral humeral fracture fragment is noted. This is displaced approximately 1.2 cm lateral to the humeral head. No definite glenoid fracture visualized. There is a moderate-sized glenohumeral joint effusion. Soft tissues: Normal. Lungs: The visualized lung is clear. IMPRESSION: Inferior left humeral head dislocation with large Hill-Sachs deformity and displaced humeral head fracture fragment. Thank you for allowing us to participate in the care of your patient. Dictated and Authenticated by: Franci Espinoza MD 01/16/2025 2:48 AM Eastern Time ([place] & [place]) Procedure Joint Reduction Joint #1: Date of Procedure: 01/16/25 Time of procedure: 06:41 Provider that performed the procedure: Ghassan Luo Standard Time Out Performed: Yes Patient Consented: Verbally and Written Sedation administered by provider performing procedure: Yes Sedation Given: Propofol. Preparation: plastics fabricator applied, pulse oximeter, capnometry used, supplemental O2 applied, reversal agents at bedside, suction/airway equipment at bedside and IV secured. ASA Class: I. Time of Last PO Intake: 18:00. Reversal agent dose(mg): 230 Local Anesthetic: Bupivicaine 0.5% Amount of anesthetic used(mL): 10 Side: left Joint reduction location: shoulder Shoulder Technique Used: traction/counter-traction Post-Reduction Neuro Exam: intact Post-Reduction Vascular Exam: intact Post Reduction X-Ray Obtained: Yes Post Reduction X-Ray Results: reduced Splint Applied: Yes Patient Tolerated Procedure: well and no complications Discharge Plan Disposition Patient Disposition: Home Condition: Good Discharge Details Clinical Impression: Acute hypokalemia, Dislocation of shoulder, Alcohol intoxication Primary Care Provider: Yvan Kong ED Provider: Ghassan Luo [place] Meds and New Rx's Prescriptions: No Action lorazepam 0.5 mg tablet 0.5 mg PO DAILY PRN (Reason: pre-medication for MRI) Qty: 2 0RF Rx Instructions: Take one tab 30 mins prior to MRI. May repeat right before MRI if needed multivitamin Tablet 1 tab PO DAILY polyethylene glycol 3350 17 gram/dose powder 238 g PO ONCE Qty: 238 0RF Rx Instructions: take per colonoscopy instructions bisacodyl [Dulcolax (bisacodyl)] 5 mg tablet,delayed release (DR/EC) 5 mg PO ONCE Qty: 4 0RF Rx Instructions: take per colonoscopy instructions tamsulosin 0.4 mg capsule 0.4 mg PO DAILY diltiazem HCl 120 mg capsule,extended release 24hr 120 mg PO DAILY Qty: 30 0RF Discharge Instructions Instructions: Shoulder Dislocation, Hypokalemia Additional Instructions: At this time your dislocated shoulder has been reduced, however there are 2 small fracture components that will likely need surgical intervention. Please follow-up closely with orthopedics. They will contact you for an appointment time. Please continue to use your sling to help with pain and instability. Take Tylenol and Motrin as needed for pain. You can also use topical Voltaren gel on your left shoulder to help with any pain or swelling. In addition to this your potassium level was notably low today. This has been replaced here and your repeat blood work now shows a normalized potassium level. If you notice any worsening of your symptoms, or any new symptoms such as vomiting, diarrhea, fever, chills, shortness of breath, chest pain, numbness, weakness, or fainting , please return immediately to the emergency department for reevaluation. Please follow up with your primary care provider as soon as possible for reassessment and reevaluation. As always, it was a pleasure participating in your medical care today. Referrals: Weston Avila MD [ [facility] STAFF PHYSICIAN, Orthopaedic Surgical] Santo Luther MD [ [facility] STAFF PHYSICIAN, Orthopaedic Surgical] Yvan Kong [Primary Care Provider, Medicine]
[2025-01-16] MEDS: Propofol 200 MG/20 ML VIAL 100 MG IVP ×4 (05:58→06:01)
--- NOTE | 2025-01-16 06:00 | DI.RAD_ITS ---
Exam(s) XR SHOULDER LT COMP POST REDUC EXAM: XR SHOULDER LT COMP POST REDUC CLINICAL HISTORY: post reduction. TECHNIQUE: 2D digital imaging was performed. Two views COMPARISON: CR,XR XR SHOULDER LT COMPLETE 2+V from 01/15/2025 FINDINGS: The previously noted anterior dislocation has been reduced. A fracture fragment is noted with of the greater tuberosity which appears in good position. There is also abnormal lucency through the inferior aspect of the glenoid also likely representing fracture. IMPRESSION: Reduction of previously noted dislocation. Greater tuberosity fragment is in place. Fracture of the inferior glenoid also noted. The preliminary [facility] report was reviewed. DATA REPOSITORY: RADIATION DOSE DELIVERED:
[2025-01-16] MEDS: Propofol 200 MG/20 ML VIAL ×2 (06:02→06:04)
--- NOTE | 2025-01-16 06:15 | DI.CT_ITS ---
Exam(s) CT UPPER EXTREMITY LT WO EXAM: CT UPPER EXTREMITY LT WO CLINICAL HISTORY: Postreduction fracture evaluation. TECHNIQUE: Imaging Protocol: Axial computed tomography images with coronal and sagittal reformatted images were created and reviewed. COMPARISON: CT CT UPPER EXTREMITY LT WO from 01/16/2025 FINDINGS: The examination is limited due to patient motion artifact. Bones: The osseous structures and articular surfaces are intact. There has been successful reduction of the previously seen shoulder dislocation. Alignment appears anatomic. There is also been reduction of the comminuted fracture involving the lateral humeral head. There is no new fracture. There are mild degenerative changes seen at the acromioclavicular joint. Soft Tissues: Normal. IMPRESSION: 1. Successful reduction of the left shoulder dislocation. 2. Comminuted fracture involving the lateral humeral head. 3. The preliminary [facility] report was reviewed. RADIATION DOSE DELIVERED: 257.89mGy.cm Total DLP 257.89mGy.cm Total DLP DATA REPOSITORY: All CT scans at this facility are submitted to the National Radiology Data Registry (NRDR) Dose Index Registry (DIR) with the [employer] ([employer]). RADIATION OPTIMIZATION: All CT scans at this facility use at least one of these dose optimization techniques: automated exposure control; mA and/or kV adjustment per patient size (includes targeted exams where dose is matched to clinical indication); or iterative reconstruction.
[2025-01-16 06:37] LABS: Anion Gap 10.6 mmol/L (3-11); BUN 10 mg/dL (7-18); CO2 25.4 mmol/L (21.0-32.0); Calcium 8.2 mg/dL (8.5-10.1); Chloride 102 mmol/L (98-107); Estimated GFR 104.83 (mL/min/1.73m2); Glucose 182 mg/dL (74-106); Potassium 3.6 mmol/L (3.5-5.1); Sodium 138 mmol/L (136-145)
--- NOTE | 2025-01-16 08:02 | DI.[facility]_ITS ---
PROCEDURE INFORMATION: Exam: XR Left Shoulder Exam date and time: 01/16/2025 6:13 AM Age: 59 years old Clinical indication: Injury or trauma; Fall; Dislocation; Shoulder; Left; Injury date: 01/15/25; Injury details: Post reduction TECHNIQUE: Imaging protocol: Radiologic exam of the left shoulder. Views: 2 or more views. COMPARISON: No relevant prior studies are available for comparison. FINDINGS: Comminuted proximal left humerus fracture with involvement of the greater tuberosity. IMPRESSION: Left humerus fracture. Dictated and Authenticated by: Yesi Burch MD. Orderin Puja Ferrell MD
--- NOTE | 2025-01-16 08:03 | DI.[facility]_ITS ---
PROCEDURE INFORMATION: Exam: CT Left Upper Extremity Without Contrast, Shoulder Exam date and time: 01/16/2025 6:47 AM Age: 59 years old Clinical indication: Other: Post reduction TECHNIQUE: Imaging protocol: Computed tomography of the left upper extremity without contrast. Exam focused on the shoulder. Radiation optimization: All CT scans at this facility use at least one of these dose optimization techniques: automated exposure control; mA and/or kV adjustment per patient size (includes targeted exams where dose is matched to clinical indication); or iterative reconstruction. COMPARISON: CT UPPER EXTREMITY LT WO 01/16/2025 1:37 AM FINDINGS: Bones/joints: Comminuted fracture of the proximal left humerus with involvement of the greater tuberosity. Lymph nodes: Axillary lymph nodes. IMPRESSION: Left humerus fracture. Dictated and Authenticated by: Yesi Burch MD. Orderin Puja Ferrell MD
== END 2025-01-16 07:44 | disposition home or self-care (01) ==
PROVIDERS: Student in an Organized Health Care Education/Training Program; Emergency Provider Student in an Organized Health Care Education/Training Program; PCP Student in an Organized Health Care Education/Training Program
DX: S42.202A Unspecified fracture of upper end of left humerus, initial encounter for closed fracture (principal); W10.8XXA Fall (on) (from) other stairs and steps, initial encounter; F10.920 Alcohol use, unspecified with intoxication, uncomplicated; E87.6 Hypokalemia
CPT/HCPCS: 00123; 23650; 36415; 73030; 80048; 80053; 93005; 96365; 96366; 96375; 96376; 99152; 99291; 70450; 72125; 73060; 73080; 73200; 80320; 83735; 84132; 85025; 93010; J1885; J2270; J2405; J2704; J3010; J3480

== ENCOUNTER 2025-01-22 14:46 | Outpatient (CLI) | payer MEDICAID, SELFPAY ==
--- NOTE | 2025-01-22 11:00 | DI.RAD_ITS ---
Exam(s) XR SHOULDER LT COMPLETE 2+V EXAM: XR SHOULDER LT COMPLETE 2+V CLINICAL HISTORY: F/U LEFT SHOULDER DISLOCATION. TECHNIQUE: 2D digital imaging was performed of the left shoulder. Two images were obtained. Grashey and Y views were obtained. COMPARISON: CR,XR XR SHOULDER LT COMPLETE 2+V from 01/15/2025 FINDINGS: BONES: There is again seen an acute nondisplaced fracture involving the greater tuberosity. No bony destructive lesion is seen. JOINTS: No dislocation present. SOFT TISSUE: Normal. IMPRESSION: 1. There is no evidence of a dislocation. 2. Nondisplaced fracture involving the greater tuberosity. DATA REPOSITORY: RADIATION DOSE DELIVERED:
== END 2025-01-22 14:47 | disposition home or self-care (01) ==
LOC: DIORS 14:46
PROVIDERS: PCP Student in an Organized Health Care Education/Training Program; Visit Provider Student in an Organized Health Care Education/Training Program
DX: S43.005A Unspecified dislocation of left shoulder joint, initial encounter (principal)
CPT/HCPCS: 73030

== ENCOUNTER 2025-02-06 14:51 | Outpatient (CLI) | payer MEDICAID, SELFPAY ==
--- NOTE | 2025-02-06 11:00 | DI.RAD_ITS ---
Exam(s) XR SHOULDER LT COMPLETE 2+V EXAM: XR SHOULDER LT COMPLETE 2+V CLINICAL HISTORY: F/U LEFT SHOULDER INJURY. TECHNIQUE: 2D digital imaging was performed. COMPARISON: CR XR SHOULDER LT COMPLETE 2+V from 01/22/2025 FINDINGS: 3 views The greater tuberosity fracture on the lateral aspect of the humeral head is again noted and appears unchanged from 01/22/2025. No displacement IMPRESSION: Nondisplaced greater tuberosity fracture, radiographically unchanged from 01/22/2025. DATA REPOSITORY: RADIATION DOSE DELIVERED:
== END 2025-02-06 14:52 | disposition home or self-care (01) ==
LOC: DIORS 14:51
PROVIDERS: PCP Student in an Organized Health Care Education/Training Program; Visit Provider Student in an Organized Health Care Education/Training Program
DX: S42.252A Displaced fracture of greater tuberosity of left humerus, initial encounter for closed fracture (principal); S43.015A Anterior dislocation of left humerus, initial encounter
CPT/HCPCS: 73030

== ENCOUNTER 2025-02-27 11:56 | Outpatient (CLI) | payer MEDICAID, SELFPAY ==
--- NOTE | 2025-02-27 10:45 | DI.RAD_ITS ---
Exam(s) XR SHOULDER LT COMPLETE 2+V EXAM: XR SHOULDER LT COMPLETE 2+V CLINICAL HISTORY: F/U FRACTURE. TECHNIQUE: 2D digital imaging was performed of the left shoulder. Four images were obtained. Grashey and Y views were obtained. COMPARISON: CT CT UPPER EXTREMITY LT WO from 01/16/2025 CR XR SHOULDER LT COMPLETE 2+V from 02/06/2025 FINDINGS: BONES: There has been no change in alignment of the fracture involving the greater tuberosity of the left humerus. There is no new fracture. No bony destructive lesion is seen. JOINTS: No dislocation present. SOFT TISSUE: Normal. IMPRESSION: Stable nondisplaced greater tuberosity fracture. DATA REPOSITORY: RADIATION DOSE DELIVERED:
== END 2025-02-27 11:57 | disposition home or self-care (01) ==
LOC: DIORS 11:56
PROVIDERS: PCP Student in an Organized Health Care Education/Training Program; Visit Provider Student in an Organized Health Care Education/Training Program
DX: S42.252D Displaced fracture of greater tuberosity of left humerus, subsequent encounter for fracture with routine healing (principal); X58.XXXD Exposure to other specified factors, subsequent encounter
CPT/HCPCS: 73030